=== PATIENT | male | born 1950 | race Caucasian/White ===

== ENCOUNTER 2017-12-26 12:25 | Inpatient (IN) | payer MEDICARE, OTHER ==
[2017-12-26 13:51] LABS: % BASOPHILS 0.7 % (0.0-2.0); % EOSINOPHILS 4.2 % (0.0-5.0); % LYMPHOCYTES 15.5 % (20.0-50.0); % MONOCYTES 10.3 % (2.0-10.0); % NEUTROPHILS 69.3 % (40.0-80.0); EOSINOPHILE ABSOLUTE 0.3 Th/cmm (0.1-0.4); HEMATOCRIT 41.7 % (41.0-60); LYMPHOCYTE ABSOLUTE 0.9 Th/cmm (1.5-3.0); MEAN CELL VOLUME 92.9 fl (80-99); MEAN CORPUSCULAR HEMOGLOBIN 31.2 pg (27.0-31.0); MEAN CORPUSCULAR HGB CONC 33.6 pg (28.0-36.0); MEAN PLATELET VOLUME 6.8 fl; MONOCYTE ABSOLUTE 0.6 Th/cmm (0.3-1.0); NEUTROPHILE ABSOLUTE 4.3 Th/cmm (1.8-8.0); PLATELET COUNT 196 Th/cmm (150-400); RED BLOOD COUNT 4.48 Mil/cmm (3.80-5.80); RED CELL DISTRIBUTION WIDTH 12.2 % (11.5-20.0); WHITE BLOOD COUNT 6.1 Th/cmm (4.8-10.8)
--- NOTE | 2017-12-26 13:57 | ED Physician Chart ---
ED Chief Complaint/HPI - Patient Information Date Seen:: 12/26/17 Time Seen:: 12:55 Chief Complaint:: Agitation History of Present Illness:: onset x 3 days of agitation, anxiety, hallucinations, and aggressive behavior; no report of H/As, S/T, neck pain, SIs, C/P, SOB, Abd. Pain, A/N/V/D/C, fever, chills, or urinary s/s; pt's last tetanus shot: < 5 years; UTD; no report of LOC , AMS, or ALOC Allergies:: Allergies Allergy/AdvReac Type Severity Reaction Status Date / Time No Known Allergies Allergy Verified 12/26/17 12:55 Vitals:: Vital Signs - 8 hr 12/26/17 12/26/17 12:54 12:55 Temp 98.2 F 98.7 F HR 53 53 RR 18 16 BP 149/62 149/62 O2 Sat % 99 99 Historian:: Patient, EMS Review:: Nurse's Note Reviewed, Old Chart Reviewed, EMS run form Reviewed ED Review of Systems - Review of Systems General/Constitutional: No fever, No chills, No weight loss, No weakness, No diaphoresis, No edema, No loss of appetite Skin: No skin lesions, No rash, No bruising Head: No headache, No light-headedness Eyes: No loss of vision, No pain, No diplopia ENT: No earache, No nasal drainage, No sore throat, No tinnitus Neck: No neck pain, No swelling, No thyromegaly, No stiffness, No mass noted Cardio Vascular: No chest pain, No palpitations, No PND, No orthopnea, No edema Pulmonary: No SOB, No cough, No sputum, No wheezing GI: No nausea, No vomiting, No diarrhea, No pain, No melena, No hematochezia, No constipation, No hematemesis G/U: No dysuria, No frequency, No hematuria, No nacturia Musculoskeletal: No bone or joint pain, No back pain, No muscle pain Endocrine: No polyuria, No polydipsia Psychiatric: Prior psych history, No depression, Anxiety, No suicidal ideation, No homicidal ideation, Auditory hallucination, No visual hallucination Hematopoietic: No bruising, No lymphadenopathy Allergic/Immuno: No urticaria, No angioedema Neurological: No syncope, No focal symptoms, No weakness, No paresthesia, No headache, No seizure, No dizziness, Confusion, No vertigo ED Past Medical History - Past Medical History Obtainable: Yes Past Medical History: HTN, CAD, CHF, Dyslipidemia, Dementia Family History: Heart disease, HTN Social History: Non Smoker, No Alcohol, No Drug Use, Single, Care Facility Surgical History: None Psychiatricy History: Schizophrenia, Bipolar, Dementia Medication: Reviewed Family Medical History - Family Member Mother History Unknown: Yes ED Physical Exam - Physical Examination General/Constitutional: Awake, Well-developed, well-nourished, Alert, No distress, GCS 15, Non-toxic appearing, Ambulatory Head: Atraumatic Eyes: Lids, conjuctiva normal, PERRL, EOMI Skin: Nl inspection, No rash, No skin lesions, No ecchymosis, Well hydrated, No lymphadenopathy ENMT: External ears, nose nl, TM canals nl, Nasal exam nl, Lips, teeth, gums nl , Oropharynx nl, Tonsils nl Neck: Nontender, Full ROM w/o pain, No JVD, No nuchal rigidity, No bruit, No mass, No stridor Respiratory: Nl effort/Exclusion, Clear to Auscultation, No Wheeze/Rhonchi/Rales Cardio Vascular: RRR, No murmur, gallop, rubs, NL S1 S2, Carotid/Femoral/Distal pulses equal bilaterally GI: No tenderness/rebounding/guarding, No organomegaly, No hernia, Normal BS's, Nondistended, No mass/bruits, No McBurney tenderness : No CVA tenderness Extremities: No tenderness or effusion, Full ROM, normal strength in all extremities, No edema, Normal digits & nails Neuro/Psych: Alert/oriented, DTR's symmetric, Normal sensory exam, Normal motor strength, Judgement/insight normal, Mood normal, Normal gait, No focal deficits Other Neuro/Psych comments:: Disoriented and Confused; + Psychomotor Agitation; no SIs; Mood/Affect: Labile Misc: Normal back, No paraspinal tenderness ED Labs/Radiology/EKG Results - Lab Results Results: Laboratory Tests 12/26/17 13:39 WBC 6.1 RBC 4.48 Hgb 14.0 Hct 41.7 MCV 92.9 MCH 31.2 H MCHC Differential 33.6 RDW 12.2 Plt Count 196 MPV 6.8 Neutrophils % 69.3 Lymphocytes % 15.5 L Monocytes % 10.3 H Eosinophils % 4.2 Basophils % 0.7 Comments:: Reviewed - EKG Interpretations EKG Time:: 13:44 Rate & Rhythm: 48; SB Comments:: non-specific st-t changes ED Septic Shock - . Is Septic Shock (SBP<90, OR Lactate>4 mmol\L) present?: No - <6hrs of presentation: Vital Signs: Vital Signs - 8 hr 12/26/17 12/26/17 12:54 12:55 Temp 98.2 F 98.7 F HR 53 53 RR 18 16 BP 149/62 149/62 O2 Sat % 99 99 ED Reassessment (Disposition) - Reassessment Reassessment Condition:: Improved - Diagnosis Diagnosis:: Psychosis; Hallucinations; Medical Clearance; Alzheimer's Disease; Dementia; Schizophrenia - Aftercare/Follow up Instructions Aftercare/Follow-Up Instructions:: Counseled pt regarding lab results/diagnosis & need follow up, Counseled pt & family regarding lab results/diagnosis & need follow up - Patient Disposition Discharge/Transfer:: Acute Care w/in this hosp Admitted to:: [facility] Condition at Disposition:: Stable, Improved
[2017-12-26 14:28] LABS: URINE BILIRUBIN NEGATIVE (NEGATIVE); URINE BLOOD NEGATIVE (NEGATIVE); URINE GLUCOSE (UA) NEGATIVE (NEGATIVE); URINE KETONE NEGATIVE (NEGATIVE); URINE LEUKOCYTE ESTERASE NEGATIVE (NEGATIVE); URINE NITRATE NEGATIVE (NEGATIVE); URINE PROTEIN NEGATIVE (NEGATIVE); URINE SOURCE CLEAN C; URINE UROBILINOGEN 0.2 E.U./dL (0.2 - 1.0)
[2017-12-26 14:28] LABS: ACETAMINOPHEN < 10.0 ug/mL (10.0-30.0); ALB/GLOB RATIO 1.1 (1.0-1.8); ALBUMIN 3.6 gm/dL (4.2-5.5); ALKALINE PHOSPHATASE 78 U/L (34-104); ANION GAP 10.8 (7.0-16.0); BILIRUBIN,TOTAL 0.6 mg/dL (0.3-1.0); BUN - UREA NITROGEN 18 mg/dL (7-25); CALCIUM SERUM 9.1 mg/dL (8.6-10.3); CARBON DIOXIDE 30.1 mEq/L (21.0-31.0); CHLORIDE 99 mEq/L (98-107); CHOLESTEROL 162 mg/dL (<200); CREATININE - SERUM 0.9 mg/dL (0.7-1.3); GFR AFRICAN-AMERICAN > 60.0 ml/min (>90); GFR NON AFRICAN-AMERICAN > 60.0 ml/min; GLUCOSE 104 mg/dL (70-105); HDL -HIGH DENSITY LIPOPROTEIN 43 mg/dL (23-92); POTASSIUM SERUM 4.9 mEq/L (3.5-5.1); SGOT 18 U/L (13-39); SGPT/ALT 23 U/L (7-52); SODIUM SERUM 135 mEq/L (136-145); TOTAL PROTEIN,SERUM 6.9 gm/dL (6.0-8.3); TRIGLYCERIDES 204 mg/dL (<150)
[2017-12-26 14:29] LABS: URINE CLARITY CLEAR (CLEAR); URINE COLOR YELLOW; URINE MICROSCOPIC INDICATED? YES
[2017-12-26 14:30] LABS: SALICYLATES (ASPIRIN) < 25.0 mg/L (30.0-100.0)
[2017-12-26 14:34] LABS: URINE BACTERIA FEW /hpf (NONE SEEN); URINE EPITHELIAL CELLS FEW /lpf (FEW); URINE RBC NONE SEEN /hpf (0-5); URINE WBC 0-2 /hpf (0-5)
[2017-12-26] MEDS ORDERED: Acetaminophen 500 MG TAB ONE (14:55)
[2017-12-26] MEDS ORDERED: Acetaminophen 500 MG TAB PO ONE (14:59)
[2017-12-26 15:01] LABS: AMPHETAMINE URINE NEGATIVE (NEGATIVE); BARBITURATES URINE NEGATIVE (NEGATIVE); BENZODIAZEPINES QUAL URINE NEGATIVE (NEGATIVE); CANNABINOID THC NEGATIVE (NEGATIVE); COCAINE METABOLITE QUAL URINE NEGATIVE (NEGATIVE); METHADONE URINE NEGATIVE (NEGATIVE); METHAMPHETAMINES QUAL URINE NEGATIVE (NEGATIVE); OPIATES (MORPHINE) QUAL. URINE POSITIVE (NEGATIVE); PHENCYCLIDINE (PCP) URINE NEGATIVE (NEGATIVE); TRICYCLICS (TCA) QUAL. URINE NEGATIVE (NEGATIVE)
[2017-12-26] MEDS ORDERED: Magnesium Hydroxide (MOM) 30 mL UDC PO PRN (16:06)
[2017-12-26 16:27] LABS: CHOLESTEROL 168 mg/dL (<200); HDL -HIGH DENSITY LIPOPROTEIN 44 mg/dL (23-92); TRIGLYCERIDES 206 mg/dL (<150)
[2017-12-26 20:04] VITALS: BP 130/70
[2017-12-26] MEDS ORDERED: Fleet Enema 135 mL RC PRN (20:25)
[2017-12-26] MEDS ORDERED: LIDOCAINE TP SCH (21:00)
[2017-12-26] MEDS: Maalox 30 mL Cup PO PRN (21:35)
[2017-12-26] MEDS: Hydrocodone/APAP 5mg/325mg Tab PO PRN (21:36)
[2017-12-26] MEDS: Potassium Chloride 20 mEq ER Tab PO SCH (21:37)
[2017-12-27] MEDS: Acetaminophen 500 MG TAB PO PRN (02:55)
[2017-12-27] MEDS: Multivitamin Tab PO SCH (08:15)
[2017-12-27] MEDS: Potassium Chloride 20 mEq ER Tab PO SCH ×4 (08:15→21:04)
[2017-12-27] MEDS: Fish Oil 1,000 MG SGL PO SCH ×2 (08:15→16:30)
--- NOTE | 2017-12-27 08:58 | History and Physical ---
History of Present Illness - HPI Chief Complaint: Aggressive behavior HPI: Patient was send by SNF for evaluation due to aggressive behavior. 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: Dementia GI: Report: No Pertinent Hx Psych: Report: No Pertinent Hx Musculoskeletal: Report: No Pertinent Hx Rheumatologic: Report: No pertinent Hx Infectious Disease: Report: No Pertinent Hx Renal/: Report: No Pertinent Hx Endocrine: Report: No Pertinent Hx Dermatology: Report: No Pertinent Hx - Past Surgical History Past Surgical History: No pertinent Hx Family Medical History - Family Member Mother History Unknown: Yes Social History Smoke: No Alcohol: None Drugs: None Lives: Long Term Domestic Violence: Negative - Medications Home Medications: Home Medication Medication Instructions Recorded Type Acetaminophen [Acetaminophen ER] 650 mg PO Q4H PRN 12/26/17 History Acetaminophen [Pain Relief] 500 mg PO Q4H PRN 12/26/17 History Acetaminophen [Tylenol Extra 1,000 mg PO Q4HR PRN 12/26/17 History Strength] Aspirin [Adult Aspirin] 81 mg PO DAILY 12/26/17 History Benztropine [Cogentin*] 0.5 mg PO HS 12/26/17 History Bisacodyl [Dulcolax 10 Mg Supp] 10 mg RC DAILY PRN 12/26/17 History Calcium Carbonate [Tums] 500 mg PO TID 12/26/17 History Clonazepam [Klonopin] 0.5 mg PO BID PRN 12/26/17 History Divalproex [Bhavik NOVA] 125 mg PO DAILY 12/26/[address] [Bhavik NOVA] 250 mg PO HS 12/26/17 History Docusate Sodium [Stool Softener] 250 mg PO BID 12/26/17 History Donepezil HCl [Aricept] 10 mg PO DAILY 12/26/17 History Fish Oil [[place] 3] 1,000 mg PO BID 12/26/17 History Fleet Enema 1 bot RC DAILY PRN 12/26/17 History Furosemide [Lasix] 40 mg PO BID 12/26/17 History Hydrocodone/Acetaminophen [[place] 1 tab PO QID PRN 12/26/17 History 325 mg-5 mg*] Lidocaine 30 gm TP TID 12/26/17 History Mag Hydrox/Al Hydrox/Simeth 30 ml PO Q6H PRN 12/26/17 History [Alum-Mag Hydroxide-Simeth Liq] Magnesium Hydroxide [Milk of 30 ml PO DAILY PRN 12/26/17 History Magnesia] Melatonin/Pyridoxine HCl (B6) 1 each PO DAILY 12/26/17 History [Melatonin 3 mg Tablet] Metoprolol Tartrate 200 mg PO BID 12/26/17 History Multivitamin-Min/Iron/FA/Vit K 1 tab PO DAILY 12/26/17 History [Multi-Day Plus Minerals Tablet] Potassium Chloride 20 meq PO QID 12/26/17 History Sennosides A and B [Senna] 2 tab PO BID 12/26/17 History Simvastatin [Zocor] 20 mg PO DAILY 12/26/17 History Sodium Chloride 2 gm PO QID 12/26/17 History Tramadol HCl [Ultram] 50 mg PO Q6H PRN 12/26/17 History risperiDONE [RisperDAL] 0.5 mg PO HS 12/26/17 History - Allergies Allergies/Adverse Reactions: Allergies Allergy/AdvReac Type Severity Reaction Status Date / Time No Known Allergies Allergy Verified 12/26/17 12:55 Review of Systems - Review of Systems Constitutional: Report: No Significant Eyes: Report: No Significant ENT: Report: No Significant Respiratory: Report: No Significant Cardiovascular: Report: No Significant Gastrointestinal: Report: No Significant Genitourinary: Report: No Significant Musculoskeletal: Report: No Significant Skin: Report: No Significant Neurological: Report: No Significant Physical Exam - Physical Exam HEENT: Report: Ears Nose Throat within normal limits, Pale Conjunctiva Cardiovascular Systems: Report: Regular, Rate and Rhythm Respiratory: Report: Breath Sounds are within normal limits Abdomen: Report: Non-tender to palpation Back: Report: Inspection of back is within normal limits. Skin: Report: Color of skin is within normal limits Neuro/Psych: Report: Disoriented to name time or place - Lab Results All Lab Results last 24 hours: Laboratory Results - last 24 hr 12/26/17 12/26/17 12/26/17 13:39 13:39 13:39 WBC 6.1 RBC 4.48 Hgb 14.0 Hct 41.7 MCV 92.9 MCH 31.2 H MCHC Differential 33.6 RDW 12.2 Plt Count 196 MPV 6.8 Neutrophils % 69.3 Lymphocytes % 15.5 L Monocytes % 10.3 H Eosinophils % 4.2 Basophils % 0.7 Sodium 135 L Potassium 4.9 Chloride 99 Carbon Dioxide 30.1 Anion Gap 10.8 BUN 18 Creatinine 0.9 Est GFR ( Amer) > 60.0 Est GFR (Non-Af Amer) > 60.0 BUN/Creatinine Ratio 20.0 Glucose 104 Calcium 9.1 Total Bilirubin 0.6 AST 18 ALT 23 Alkaline Phosphatase 78 Troponin I Total Protein 6.9 Albumin 3.6 L Globulin 3.3 Albumin/Globulin Ratio 1.1 Triglycerides 204 H Cholesterol 162 LDL Cholesterol Direct 80 HDL Cholesterol 43 TSH 1.90 Urine Source Urine Color Urine Clarity Urine pH Ur Specific [place] Urine Protein Urine Glucose (UA) Urine Ketones Urine Blood Urine Nitrate Urine Bilirubin Urine Urobilinogen Ur Leukocyte Esterase Urine RBC Urine WBC Ur Epithelial Cells Urine Bacteria Salicylates < 25.0 L Urine Opiates Screen Urine Methadone Screen Acetaminophen < 10.0 L Ur Barbiturates Screen Ur Tricyclics Screen Ur Phencyclidine Scrn Amphetamines Screen U Methamphetamines Scrn U Benzodiazepines Scrn U Cocaine Metab Screen U Cannabinoids Screen Ethyl Alcohol < 10 12/26/17 12/26/17 12/26/17 13:39 13:39 13:39 WBC RBC Hgb Hct MCV MCH MCHC Differential RDW Plt Count MPV Neutrophils % Lymphocytes % Monocytes % Eosinophils % Basophils % Sodium Potassium Chloride Carbon Dioxide Anion Gap BUN Creatinine Est GFR ( Amer) Est GFR (Non-Af Amer) BUN/Creatinine Ratio Glucose Calcium Total Bilirubin AST ALT Alkaline Phosphatase Troponin I 0.01 Total Protein Albumin Globulin Albumin/Globulin Ratio Triglycerides 206 H Cholesterol 168 LDL Cholesterol Direct 81 HDL Cholesterol 44 TSH Urine Source Urine Color Urine Clarity Urine pH Ur Specific [place] Urine Protein Urine Glucose (UA) Urine Ketones Urine Blood Urine Nitrate Urine Bilirubin Urine Urobilinogen Ur Leukocyte Esterase Urine RBC Urine WBC Ur Epithelial Cells Urine Bacteria Salicylates Urine Opiates Screen POSITIVE H Urine Methadone Screen NEGATIVE Acetaminophen Ur Barbiturates Screen NEGATIVE Ur Tricyclics Screen NEGATIVE Ur Phencyclidine Scrn NEGATIVE Amphetamines Screen NEGATIVE U Methamphetamines Scrn NEGATIVE U Benzodiazepines Scrn NEGATIVE U Cocaine Metab Screen NEGATIVE U Cannabinoids Screen NEGATIVE Ethyl Alcohol 12/26/17 14:09 WBC RBC Hgb Hct MCV MCH MCHC Differential RDW Plt Count MPV Neutrophils % Lymphocytes % Monocytes % Eosinophils % Basophils % Sodium Potassium Chloride Carbon Dioxide Anion Gap BUN Creatinine Est GFR ( Amer) Est GFR (Non-Af Amer) BUN/Creatinine Ratio Glucose Calcium Total Bilirubin AST ALT Alkaline Phosphatase Troponin I Total Protein Albumin Globulin Albumin/Globulin Ratio Triglycerides Cholesterol LDL Cholesterol Direct HDL Cholesterol TSH Urine Source CLEAN C Urine Color YELLOW Urine Clarity CLEAR Urine pH 6.0 Ur Specific [place] 1.010 Urine Protein NEGATIVE Urine Glucose (UA) NEGATIVE Urine Ketones NEGATIVE Urine Blood NEGATIVE Urine Nitrate NEGATIVE Urine Bilirubin NEGATIVE Urine Urobilinogen 0.2 Ur Leukocyte Esterase NEGATIVE Urine RBC NONE SEEN Urine WBC 0-2 Ur Epithelial Cells FEW Urine Bacteria FEW Salicylates Urine Opiates Screen Urine Methadone Screen Acetaminophen Ur Barbiturates Screen Ur Tricyclics Screen Ur Phencyclidine Scrn Amphetamines Screen U Methamphetamines Scrn U Benzodiazepines Scrn U Cocaine Metab Screen U Cannabinoids Screen Ethyl Alcohol - Assessment Assessment: Patient is awake , alert, calm, in no acute distress. Dx: Increased in agitation, HTN, CAD, CHF, Dyslipemia, Dementia, Obesity. - Plan Plan: Patient is follow by Psychiatry, will continue with SNF meds. Will continue to monitor.
[2017-12-27] MEDS ORDERED: Non-Formulary Item 1 EA (Melatonin/Pyridoxine Hcl (B6) [Melatonin 3 Mg Tablet] 1 EACH) PO SCH (09:00)
[2017-12-27] MEDS ORDERED: Non-Formulary Item 1 EA (Multivitamin-Min/Iron/Fa/Vit K [Multi-Day Plus Minerals Tablet] 1 PO SCH (09:00)
[2017-12-27] MEDS: Hydrocodone/APAP 5mg/325mg Tab PO PRN ×2 (10:12→21:05)
[2017-12-27] MEDS: Maalox 30 mL Cup PO PRN (21:05)
[2017-12-28] MEDS: Multivitamin Tab PO SCH (08:42)
[2017-12-28] MEDS: Hydrocodone/APAP 5mg/325mg Tab PO PRN ×2 (08:42→16:29)
[2017-12-28] MEDS: Fish Oil 1,000 MG SGL PO SCH ×2 (08:42→16:26)
[2017-12-28] MEDS: Potassium Chloride 20 mEq ER Tab PO SCH ×4 (08:44→20:53)
--- NOTE | 2017-12-28 10:33 | General Progress Note ---
Subjective - Review of Systems Service Date: 12/28/17 Subjective: Patient is confused Objective - Results Result Diagrams: 12/26/17 13:39 12/26/17 13:39 Recent Labs: Laboratory Last Values WBC 6.1 Th/cmm (4.8-10.8) 12/26/17 13:39 RBC 4.48 Mil/cmm (3.80-5.80) 12/26/17 13:39 Hgb 14.0 gm/dL (12-16) 12/26/17 13:39 Hct 41.7 % (41.0-60) 12/26/17 13:39 MCV 92.9 fl (80-99) 12/26/17 13:39 MCH 31.2 pg (27.0-31.0) H 12/26/17 13:39 MCHC Differential 33.6 pg (28.0-36.0) 12/26/17 13:39 RDW 12.2 % (11.5-20.0) 12/26/17 13:39 Plt Count 196 Th/cmm (150-400) 12/26/17 13:39 MPV 6.8 fl 12/26/17 13:39 Neutrophils % 69.3 % (40.0-80.0) 12/26/17 13:39 Lymphocytes % 15.5 % (20.0-50.0) L 12/26/17 13:39 Monocytes % 10.3 % (2.0-10.0) H 12/26/17 13:39 Eosinophils % 4.2 % (0.0-5.0) 12/26/17 13:39 Basophils % 0.7 % (0.0-2.0) 12/26/17 13:39 Sodium 135 mEq/L (136-145) L 12/26/17 13:39 Potassium 4.9 mEq/L (3.5-5.1) 12/26/17 13:39 Chloride 99 mEq/L (98-107) 12/26/17 13:39 Carbon Dioxide 30.1 mEq/L (21.0-31.0) 12/26/17 13:39 Anion Gap 10.8 (7.0-16.0) 12/26/17 13:39 BUN 18 mg/dL (7-25) 12/26/17 13:39 Creatinine 0.9 mg/dL (0.7-1.3) 12/26/17 13:39 Est GFR ( Amer) > 60.0 ml/min (>90) 12/26/17 13:39 Est GFR (Non-Af Amer) > 60.0 ml/min 12/26/17 13:39 BUN/Creatinine Ratio 20.0 12/26/17 13:39 Glucose 104 mg/dL (70-105) 12/26/17 13:39 Calcium 9.1 mg/dL (8.6-10.3) 12/26/17 13:39 Total Bilirubin 0.6 mg/dL (0.3-1.0) 12/26/17 13:39 AST 18 U/L (13-39) 12/26/17 13:39 ALT 23 U/L (7-52) 12/26/17 13:39 Alkaline Phosphatase 78 U/L (34-104) 12/26/17 13:39 Troponin I 0.01 ng/mL (0.01-0.05) 12/26/17 13:39 Total Protein 6.9 gm/dL (6.0-8.3) 12/26/17 13:39 Albumin 3.6 gm/dL (4.2-5.5) L 12/26/17 13:39 Globulin 3.3 gm/dL 12/26/17 13:39 Albumin/Globulin Ratio 1.1 (1.0-1.8) 12/26/17 13:39 Triglycerides 206 mg/dL (<150) H 12/26/17 13:39 Cholesterol 168 mg/dL (<200) 12/26/17 13:39 LDL Cholesterol Direct 81 mg/dL (75-193) 12/26/17 13:39 HDL Cholesterol 44 mg/dL (23-92) 12/26/17 13:39 TSH 1.90 uIU/ml (0.34-5.60) 12/26/17 13:39 Urine Source CLEAN C 12/26/17 14:09 Urine Color YELLOW 12/26/17 14:09 Urine Clarity CLEAR (CLEAR) 12/26/17 14:09 Urine pH 6.0 (4.6 - 8.0) 12/26/17 14:09 Ur Specific [place] 1.010 (1.005-1.030) 12/26/17 14:09 Urine Protein NEGATIVE mg/dL (NEGATIVE) 12/26/17 14:09 Urine Glucose (UA) NEGATIVE mg/dL (NEGATIVE) 12/26/17 14:09 Urine Ketones NEGATIVE mg/dL (NEGATIVE) 12/26/17 14:09 Urine Blood NEGATIVE (NEGATIVE) 12/26/17 14:09 Urine Nitrate NEGATIVE (NEGATIVE) 12/26/17 14:09 Urine Bilirubin NEGATIVE (NEGATIVE) 12/26/17 14:09 Urine Urobilinogen 0.2 E.U./dL (0.2 - 1.0) 12/26/17 14:09 Ur Leukocyte Esterase NEGATIVE (NEGATIVE) 12/26/17 14:09 Urine RBC NONE SEEN /hpf (0-5) 12/26/17 14:09 Urine WBC 0-2 /hpf (0-5) 12/26/17 14:09 Ur Epithelial Cells FEW /lpf (FEW) 12/26/17 14:09 Urine Bacteria FEW /hpf (NONE SEEN) 12/26/17 14:09 Salicylates < 25.0 mg/L (30.0-100.0) L 12/26/17 13:39 Urine Opiates Screen POSITIVE (NEGATIVE) H 12/26/17 13:39 Urine Methadone Screen NEGATIVE (NEGATIVE) 12/26/17 13:39 Acetaminophen < 10.0 ug/mL (10.0-30.0) L 12/26/17 13:39 Ur Barbiturates Screen NEGATIVE (NEGATIVE) 12/26/17 13:39 Ur Tricyclics Screen NEGATIVE (NEGATIVE) 12/26/17 13:39 Ur Phencyclidine Scrn NEGATIVE (NEGATIVE) 12/26/17 13:39 Amphetamines Screen NEGATIVE (NEGATIVE) 12/26/17 13:39 U Methamphetamines Scrn NEGATIVE (NEGATIVE) 12/26/17 13:39 U Benzodiazepines Scrn NEGATIVE (NEGATIVE) 12/26/17 13:39 U Cocaine Metab Screen NEGATIVE (NEGATIVE) 12/26/17 13:39 U Cannabinoids Screen NEGATIVE (NEGATIVE) 12/26/17 13:39 Ethyl Alcohol < 10 mg/dL (0-10) 12/26/17 13:39 RPR NONREACTIVE (NONREACTIVE) 12/26/17 13:39 - Physical Exam Vitals and I&O: Vital Signs Temp 97.6 F 12/28/17 06:49 Pulse 77 12/28/17 08:49 Resp 20 12/28/17 06:49 BP 149/83 12/28/17 08:49 Pulse Ox 97 12/28/17 06:49 Intake & Output 12/27/17 12/28/17 12/28/17 18:59 06:59 18:59 Intake Total 900 120 Balance 900 120 Intake: Oral 900 120 Other: # Voids 3 3 # Bowel Movements 1 Active Medications: Current Medications Acetaminophen (Tylenol) 650 mg PO Q4HR PRN PRN Reason: Mild Pain / Temp above 100 Stop: 02/24/18 16:05 Last Admin: 12/26/17 17:51 Dose: 650 mg Acetaminophen (Tylenol Extra Strength) 1,000 mg PO Q4H PRN PRN Reason: Pain (Severe) Stop: 02/24/18 20:24 Last Admin: 12/27/17 02:55 Dose: 1,000 mg Acetaminophen/Hydrocodone Bitart ([place] 5mg/325mg) 1 tab PO QID PRN PRN Reason: Pain (Moderate) Stop: 02/24/18 20:24 Last Admin: 12/28/17 08:42 Dose: 1 tab Al Hydrox/Mg Hydrox/Simethicone (Maalox) 30 ml PO Q4HR PRN PRN Reason: GI DISTRESS Stop: 02/24/18 16:05 Last Admin: 12/27/17 21:05 Dose: 30 ml Aspirin (Ecotrin) 81 mg PO DAILY [facility] Stop: 02/25/18 08:59 Last Admin: 12/28/17 08:42 Dose: 81 mg Benztropine Mesylate (Cogentin) 0.5 mg PO HS [facility] Stop: 02/24/18 20:59 Last Admin: 12/27/17 21:04 Dose: 0.5 mg Bisacodyl (Dulcolax 10 Mg Supp) 10 mg RC DAILY PRN PRN Reason: Constipation Stop: 02/24/18 20:24 Calcium Carbonate (Tums) 500 mg PO TID [facility] Stop: 02/24/18 20:59 Last Admin: 12/28/17 08:42 Dose: 500 mg Divalproex Sodium (Depakote Dr) 125 mg PO DAILY [facility]; Protocol Stop: 02/25/18 08:59 Last Admin: 12/28/17 08:43 Dose: 125 mg Divalproex Sodium (Depakote Dr) 250 mg PO HS [facility]; Protocol Stop: 02/24/18 20:59 Last Admin: 12/27/17 21:04 Dose: 250 mg Docusate Sodium (Colace) 250 mg PO BID [facility] Stop: 02/25/18 08:59 Last Admin: 12/28/17 08:42 Dose: 250 mg Donepezil HCl (Aricept) 10 mg PO DAILY [facility] Stop: 02/25/18 08:59 Last Admin: 12/27/17 08:15 Dose: 10 mg Fish Oil ([place] 3) 1,000 mg PO BID [facility] Stop: 02/25/18 08:59 Last Admin: 12/28/17 08:42 Dose: 1,000 mg Furosemide (Lasix) 40 mg PO BID [facility] Stop: 02/25/18 08:59 Last Admin: 12/28/17 08:45 Dose: 40 mg Lorazepam (Ativan) 0.5 mg PO Q4HR PRN; Protocol PRN Reason: Anxiety Stop: 01/26/18 06:28 Magnesium Hydroxide (Milk Of Magnesia) 30 ml PO HS PRN PRN Reason: Constipation Metoprolol Tartrate (Lopressor) 200 mg PO BID [facility] Stop: 02/25/18 08:59 Last Admin: 12/28/17 08:49 Dose: 200 mg Miscellaneous (Lidocaine [Lidocaine]) 30 gm TP TID [facility] Stop: 02/24/18 20:59 Multivitamins/Vitamin C (Theragran) 1 tab PO DAILY [facility] Stop: 02/25/18 08:59 Last Admin: 12/28/17 08:42 Dose: 1 tab Potassium Chloride (Klor-Con) 20 meq PO QID [facility] Stop: 02/24/18 20:59 Last Admin: 12/28/17 08:44 Dose: 20 meq Pyridoxine HCl (Vitamin B6) 50 mg PO DAILY [facility] Stop: 02/25/18 08:59 Last Admin: 12/28/17 08:42 Dose: 50 mg Risperidone (Risperdal) 1 mg PO HS [facility]; Protocol Stop: 02/25/18 20:59 Last Admin: 12/27/17 21:05 Dose: 1 mg Senna (Senna) 17.2 mg PO BID [facility] Stop: 02/25/18 08:59 Last Admin: 12/28/17 08:43 Dose: 17.2 mg Simvastatin (Zocor) 20 mg PO HS [facility]; Protocol Stop: 02/25/18 20:59 Last Admin: 12/27/17 21:04 Dose: 20 mg Sodium Chloride (Nacl Tab) 2 gm PO QID [facility] Stop: 02/24/18 20:59 Last Admin: 12/27/17 21:04 Dose: 2 gm Sodium Phosphate (Fleet Enema) 135 ml RC DAILY PRN PRN Reason: Constipation Stop: 02/24/18 20:24 Tramadol HCl (Ultram) 50 mg PO Q6H PRN PRN Reason: Pain (Mild) Stop: 02/24/18 20:24 Last Admin: 12/28/17 05:54 Dose: 50 mg Zolpidem Tartrate (Ambien) 5 mg PO HS PRN PRN Reason: Insomnia Stop: 02/24/18 16:05 Last Admin: 12/26/17 21:37 Dose: 5 mg General: Alert, No acute distress, Other (Confused) HEENT: Atraumatic, EOMI Cardiovascular: Regular rate Lungs: Clear to auscultation Abdomen: Bowel sounds Extremities: Other (No edema) Neurological: Normal gait Skin: Other (Warm and dry) Psych/Mental Status: Other (Confused) Assessment/Plan - Assessment Assessment: Patient is awake , alert, calm, in no acute distress. Dx: Increased in agitation, HTN, CAD, CHF, Dyslipemia, Dementia, Obesity. - Plan Plan: Patient is follow by Psychiatry, will continue with SNF meds. Will continue to monitor.
--- NOTE | 2017-12-28 16:31 | Psychiatric Evaluation ---
DATE OF SERVICE: JUSTIFICATION FOR HOSPITALIZATION: Agitation for 3 days, aggressive behaviors. CHIEF COMPLAINT: "I was asked to come here." HISTORY OF PRESENT ILLNESS: A 67-year-old male, noting that he was told to come to the hospital. He is talking about electrocution feels and electrocution technology at his place of residence. He does not know why he is in the hospital. He is bizarre, tangential, asking nonsensical questions, also ruminative on wanting to get an x-ray for some odd reason. The patient is somewhat aggressive, follows me around, keeps asking me to come talk to him. Noted to be disoriented, confused. Denies overt sadness or depression. PAST PSYCHIATRIC HISTORY: He notes he has had psychiatric admissions in the past. No suicide history. MEDICATIONS: Noted. SOCIAL HISTORY: He states he was born in [place], for 5 years. He states he has stepdaughter. Unclear drugs, alcohol or tobacco. MENTAL STATUS EXAMINATION: Overweight male, stated age, disoriented. No overt SI or HI. The patient talking about electric feels, delusional, psychotic-appearing, poor insight, poor judgment. Psychomotorically accelerated. PROVISIONAL DIAGNOSES: Likely schizophrenia; psychosis, unspecified; concerns for dementia; and anxiety, unspecified. MEDICAL: Please see full H and P. ESTIMATED LENGTH OF STAY: 7-10 days. ASSESSMENT: The patient is psychotic, agitated, poor impulse control. PLAN: We will continue to monitor, titrate and adjust medications. The patient will likely benefit from a dose titration of medications such as Risperdal. [facility]# [id number]
[2017-12-28] MEDS: Maalox 30 mL Cup PO PRN (17:53)
[2017-12-29] MEDS: Hydrocodone/APAP 5mg/325mg Tab PO PRN ×3 (00:58→21:09)
--- NOTE | 2017-12-29 01:15 | Progress Notes ---
DATE: 12/28/2017 SUBJECTIVE: The patient in the hospital, had been psychotic and talking about electricity and electrocution at his place of residence. The patient yelling at times, fairly well oriented, but labile, highly unpredictable, sometimes not making sense on exam, some periods of agitation, unruly behaviors. ASSESSMENT: The patient has been aggressive at place of residence and psychotic. Recent dose increase of Risperdal, anxious, concerns for ongoing combative behaviors. PLAN: We will continue to monitor, titrate and adjust medications. Given recent dose increase of Risperdal, we will continue at current dose. JOB# [id number]
[2017-12-29] MEDS: Maalox 30 mL Cup PO PRN (05:51)
[2017-12-29] MEDS: Potassium Chloride 20 mEq ER Tab PO SCH ×4 (08:28→21:07)
[2017-12-29] MEDS: Multivitamin Tab PO SCH (08:32)
[2017-12-29] MEDS: Fish Oil 1,000 MG SGL PO SCH ×2 (08:33→17:20)
--- NOTE | 2017-12-29 09:05 | General Progress Note ---
Subjective - Review of Systems Service Date: 12/29/17 Subjective: Patient is confused Objective - Results Result Diagrams: 12/26/17 13:39 12/26/17 13:39 Recent Labs: Laboratory Last Values WBC 6.1 Th/cmm (4.8-10.8) 12/26/17 13:39 RBC 4.48 Mil/cmm (3.80-5.80) 12/26/17 13:39 Hgb 14.0 gm/dL (12-16) 12/26/17 13:39 Hct 41.7 % (41.0-60) 12/26/17 13:39 MCV 92.9 fl (80-99) 12/26/17 13:39 MCH 31.2 pg (27.0-31.0) H 12/26/17 13:39 MCHC Differential 33.6 pg (28.0-36.0) 12/26/17 13:39 RDW 12.2 % (11.5-20.0) 12/26/17 13:39 Plt Count 196 Th/cmm (150-400) 12/26/17 13:39 MPV 6.8 fl 12/26/17 13:39 Neutrophils % 69.3 % (40.0-80.0) 12/26/17 13:39 Lymphocytes % 15.5 % (20.0-50.0) L 12/26/17 13:39 Monocytes % 10.3 % (2.0-10.0) H 12/26/17 13:39 Eosinophils % 4.2 % (0.0-5.0) 12/26/17 13:39 Basophils % 0.7 % (0.0-2.0) 12/26/17 13:39 Sodium 135 mEq/L (136-145) L 12/26/17 13:39 Potassium 4.9 mEq/L (3.5-5.1) 12/26/17 13:39 Chloride 99 mEq/L (98-107) 12/26/17 13:39 Carbon Dioxide 30.1 mEq/L (21.0-31.0) 12/26/17 13:39 Anion Gap 10.8 (7.0-16.0) 12/26/17 13:39 BUN 18 mg/dL (7-25) 12/26/17 13:39 Creatinine 0.9 mg/dL (0.7-1.3) 12/26/17 13:39 Est GFR ( Amer) > 60.0 ml/min (>90) 12/26/17 13:39 Est GFR (Non-Af Amer) > 60.0 ml/min 12/26/17 13:39 BUN/Creatinine Ratio 20.0 12/26/17 13:39 Glucose 104 mg/dL (70-105) 12/26/17 13:39 Calcium 9.1 mg/dL (8.6-10.3) 12/26/17 13:39 Total Bilirubin 0.6 mg/dL (0.3-1.0) 12/26/17 13:39 AST 18 U/L (13-39) 12/26/17 13:39 ALT 23 U/L (7-52) 12/26/17 13:39 Alkaline Phosphatase 78 U/L (34-104) 12/26/17 13:39 Troponin I 0.01 ng/mL (0.01-0.05) 12/26/17 13:39 Total Protein 6.9 gm/dL (6.0-8.3) 12/26/17 13:39 Albumin 3.6 gm/dL (4.2-5.5) L 12/26/17 13:39 Globulin 3.3 gm/dL 12/26/17 13:39 Albumin/Globulin Ratio 1.1 (1.0-1.8) 12/26/17 13:39 Triglycerides 206 mg/dL (<150) H 12/26/17 13:39 Cholesterol 168 mg/dL (<200) 12/26/17 13:39 LDL Cholesterol Direct 81 mg/dL (75-193) 12/26/17 13:39 HDL Cholesterol 44 mg/dL (23-92) 12/26/17 13:39 TSH 1.90 uIU/ml (0.34-5.60) 12/26/17 13:39 Urine Source CLEAN C 12/26/17 14:09 Urine Color YELLOW 12/26/17 14:09 Urine Clarity CLEAR (CLEAR) 12/26/17 14:09 Urine pH 6.0 (4.6 - 8.0) 12/26/17 14:09 Ur Specific [place] 1.010 (1.005-1.030) 12/26/17 14:09 Urine Protein NEGATIVE mg/dL (NEGATIVE) 12/26/17 14:09 Urine Glucose (UA) NEGATIVE mg/dL (NEGATIVE) 12/26/17 14:09 Urine Ketones NEGATIVE mg/dL (NEGATIVE) 12/26/17 14:09 Urine Blood NEGATIVE (NEGATIVE) 12/26/17 14:09 Urine Nitrate NEGATIVE (NEGATIVE) 12/26/17 14:09 Urine Bilirubin NEGATIVE (NEGATIVE) 12/26/17 14:09 Urine Urobilinogen 0.2 E.U./dL (0.2 - 1.0) 12/26/17 14:09 Ur Leukocyte Esterase NEGATIVE (NEGATIVE) 12/26/17 14:09 Urine RBC NONE SEEN /hpf (0-5) 12/26/17 14:09 Urine WBC 0-2 /hpf (0-5) 12/26/17 14:09 Ur Epithelial Cells FEW /lpf (FEW) 12/26/17 14:09 Urine Bacteria FEW /hpf (NONE SEEN) 12/26/17 14:09 Salicylates < 25.0 mg/L (30.0-100.0) L 12/26/17 13:39 Urine Opiates Screen POSITIVE (NEGATIVE) H 12/26/17 13:39 Urine Methadone Screen NEGATIVE (NEGATIVE) 12/26/17 13:39 Acetaminophen < 10.0 ug/mL (10.0-30.0) L 12/26/17 13:39 Ur Barbiturates Screen NEGATIVE (NEGATIVE) 12/26/17 13:39 Ur Tricyclics Screen NEGATIVE (NEGATIVE) 12/26/17 13:39 Ur Phencyclidine Scrn NEGATIVE (NEGATIVE) 12/26/17 13:39 Amphetamines Screen NEGATIVE (NEGATIVE) 12/26/17 13:39 U Methamphetamines Scrn NEGATIVE (NEGATIVE) 12/26/17 13:39 U Benzodiazepines Scrn NEGATIVE (NEGATIVE) 12/26/17 13:39 U Cocaine Metab Screen NEGATIVE (NEGATIVE) 12/26/17 13:39 U Cannabinoids Screen NEGATIVE (NEGATIVE) 12/26/17 13:39 Ethyl Alcohol < 10 mg/dL (0-10) 12/26/17 13:39 RPR NONREACTIVE (NONREACTIVE) 12/26/17 13:39 - Physical Exam Vitals and I&O: Vital Signs Temp 97.8 F 12/29/17 07:10 Pulse 68 12/29/17 08:30 Resp 19 12/29/17 07:10 BP 153/79 12/29/17 08:30 Pulse Ox 97 12/29/17 07:10 Intake & Output 12/28/17 12/29/17 12/29/17 18:59 06:59 18:59 Intake Total 1100 480 240 Balance 1100 480 240 Intake: Oral 1100 480 240 Other: # Voids 4 2 1 # Bowel Movements 1 Active Medications: Current Medications Acetaminophen (Tylenol) 650 mg PO Q4HR PRN PRN Reason: Mild Pain / Temp above 100 Stop: 02/24/18 16:05 Last Admin: 12/26/17 17:51 Dose: 650 mg Acetaminophen (Tylenol Extra Strength) 1,000 mg PO Q4H PRN PRN Reason: Pain (Severe) Stop: 02/24/18 20:24 Last Admin: 12/27/17 02:55 Dose: 1,000 mg Acetaminophen/Hydrocodone Bitart ([place] 5mg/325mg) 1 tab PO QID PRN PRN Reason: Pain (Moderate) Stop: 02/24/18 20:24 Last Admin: 12/29/17 00:58 Dose: 1 tab Al Hydrox/Mg Hydrox/Simethicone (Maalox) 30 ml PO Q4HR PRN PRN Reason: GI DISTRESS Stop: 02/24/18 16:05 Last Admin: 12/29/17 05:51 Dose: 30 ml Aspirin (Ecotrin) 81 mg PO DAILY [facility] Stop: 02/25/18 08:59 Last Admin: 12/29/17 08:33 Dose: 81 mg Benztropine Mesylate (Cogentin) 0.5 mg PO HS [facility] Stop: 02/24/18 20:59 Last Admin: 12/28/17 20:52 Dose: 0.5 mg Bisacodyl (Dulcolax 10 Mg Supp) 10 mg RC DAILY PRN PRN Reason: Constipation Stop: 02/24/18 20:24 Calcium Carbonate (Tums) 500 mg PO TID [facility] Stop: 02/24/18 20:59 Last Admin: 12/29/17 08:32 Dose: 500 mg Divalproex Sodium (Depakote Dr) 125 mg PO DAILY [facility]; Protocol Stop: 02/25/18 08:59 Last Admin: 12/29/17 08:34 Dose: 125 mg Divalproex Sodium (Depakote Dr) 250 mg PO HS ZAIRE; Protocol Stop: 02/24/18 20:59 Last Admin: 12/28/17 20:52 Dose: 250 mg Docusate Sodium (Colace) 250 mg PO BID ZAIRE Stop: 02/25/18 08:59 Last Admin: 12/28/17 16:26 Dose: 250 mg Donepezil HCl (Aricept) 10 mg PO DAILY ZAIRE Stop: 02/25/18 08:59 Last Admin: 12/29/17 08:32 Dose: 10 mg Fish Oil ([place] 3) 1,000 mg PO BID ZAIRE Stop: 02/25/18 08:59 Last Admin: 12/29/17 08:33 Dose: 1,000 mg Furosemide (Lasix) 40 mg PO BID ZAIRE Stop: 02/25/18 08:59 Last Admin: 12/29/17 08:29 Dose: 40 mg Lorazepam (Ativan) 0.5 mg PO Q4HR PRN; Protocol PRN Reason: Anxiety Stop: 01/26/18 06:28 Last Admin: 12/28/17 12:14 Dose: 0.5 mg Magnesium Hydroxide (Milk Of Magnesia) 30 ml PO HS PRN PRN Reason: Constipation Metoprolol Tartrate (Lopressor) 200 mg PO BID [facility] Stop: 02/25/18 08:59 Last Admin: 12/29/17 08:30 Dose: 200 mg Multivitamins/Vitamin C (Theragran) 1 tab PO DAILY ZAIRE Stop: 02/25/18 08:59 Last Admin: 12/29/17 08:32 Dose: 1 tab Potassium Chloride (Klor-Con) 20 meq PO QID ZAIRE Stop: 02/24/18 20:59 Last Admin: 12/29/17 08:28 Dose: 20 meq Pyridoxine HCl (Vitamin B6) 50 mg PO DAILY ZAIRE Stop: 02/25/18 08:59 Last Admin: 12/29/17 08:32 Dose: 50 mg Risperidone (Risperdal) 1 mg PO HS ZAIRE; Protocol Stop: 02/25/18 20:59 Last Admin: 12/28/17 20:52 Dose: 1 mg Senna (Senna) 17.2 mg PO BID ZAIRE Stop: 02/25/18 08:59 Last Admin: 12/28/17 16:27 Dose: 17.2 mg Simvastatin (Zocor) 20 mg PO HS ZAIRE; Protocol Stop: 02/25/18 20:59 Last Admin: 12/28/17 20:52 Dose: 20 mg Sodium Chloride (Nacl Tab) 2 gm PO QID ZAIRE Stop: 02/24/18 20:59 Last Admin: 12/29/17 08:31 Dose: 2 gm Sodium Phosphate (Fleet Enema) 135 ml RC DAILY PRN PRN Reason: Constipation Stop: 02/24/18 20:24 Tramadol HCl (Ultram) 50 mg PO Q6H PRN PRN Reason: Pain (Mild) Stop: 02/24/18 20:24 Last Admin: 12/29/17 08:34 Dose: 50 mg Zolpidem Tartrate (Ambien) 5 mg PO HS PRN PRN Reason: Insomnia Stop: 02/24/18 16:05 Last Admin: 12/28/17 20:52 Dose: 5 mg General: Alert, No acute distress, Other (Confused) HEENT: Atraumatic, EOMI Cardiovascular: Regular rate Lungs: Clear to auscultation Abdomen: Bowel sounds Extremities: Other (No edema) Neurological: Normal gait Skin: Other (Warm and dry) Psych/Mental Status: Other (Confused) Assessment/Plan - Assessment Assessment: Patient is awake , alert, calm, in no acute distress. Dx: Increased in agitation, HTN, CAD, CHF, Dyslipemia, Dementia, Obesity. - Plan Plan: Patient is follow by Psychiatry, will continue with SNF meds. Will continue to monitor. Nutritional Asmnt/Malnutr-PDOC - Dietary Evaluation Malnutrition Findings (Please click <Entered> for more info): Nutritional Asmnt/Malnutrition Start: 12/28/17 14: 54 Text: Status: Complete Freq: Protocol: Document 12/28/17 14:54 ALAINA (Rec: 12/28/17 15:11 ALAINA [email or web address]) Nutritional Asmnt/Malnutrition Patient General Information Nutritional Screening Moderate Risk Diagnosis psychosis Pertinent Medical Hx/Surgical Hx HTN, CAD, CHF, dyslipidemia, dementia, schizophrenia, bipolar Subjective Information Pt eating lunch in rec room at time of visit. Pt was alert and stated he has no diet preferences. Nursing noted PO intake: 100%. Current Diet Order/ Nutrition Support FABIOLA (4 gm) Pertinent Medications maalox, dulcolax, tums, colace , omega 3, lasix, MOM, theragran, klor-con, senna, zocor, Nacl tab Pertinent Labs 12/26: Na 135, Alb 3.6, triglycerides 204-206 Nutritional Hx/Data Height 1.73 m Height (Calculated Centimeters) 172.7 Current Weight (lbs) 99.79 kg Weight (Calculated Kilograms) 99.8 Weight (Calculated Grams) 26645.3 [place] Body Weight 154 lb Body Mass Index (BMI) 33.4 Weight Status Obese GI Symptoms GI Symptoms None Last BM 12/27 Difficult in: None Food Allergies No Skin Integrity/Comment: derek sykes 17 Current %PO Good (75-100%) Estimated Nutritional Goals BEE in Kcals: Adj wt of IBW Calories/Kcals/Kg 25-30 (based on adj wt 77.5 kg ) Kcals Calculated 3739-5463 Protein: Adj wt of IBW Protein g/k.0 (based on adj wt 77.5 kg) Protein Calculated 77.5 g Fluid: ml 2073-6957 (1 ml/kcal) Nutritional Problem No current Nutrition Prob Problem no nutrition dx at this time Malnutrition Alert Is there a minimum of two criteria No selected? Query Text:Check all the applicable criteria. A minimum of two criteria are recommended for diagnosis of either severe or non-severe malnutrition. Malnutrition Related to Morbid Obesity Malnutrition related to morbid obesity No Intervention/Recommendation Comments 1. Continue with FABIOLA (4 gm) diet as ordered d/t hx of HTN 2. Monitor PO intake, wt, labs and skin integrity 3. F/U as low risk in 7 days, 01/04 Expected Outcomes/Goals Expected Outcomes/Goals 1. PO intake to meet at least 75% of nutritional needs 2. Wt stability, skin to remain intact, and nutrition related labs to approach normal limits Reviewed by Denise Scherer RD
--- NOTE | 2017-12-29 22:16 | Progress Notes ---
DATE: 12/29/2017 SUBJECTIVE: The patient in the hospital, psychotic, talking about electricity. The patient believing that something is being added to the electricity to treat people in the hospital, "what is all this electricity for." The patient, mumbling to self, seemingly psychotic, bizarre, intrusive, mostly keeping to himself, paranoid appearing, remains impulsive, and unpredictable given his ongoing psychotic symptoms. History of lashing out. ASSESSMENT: The patient with ongoing psychotic symptoms, paranoia. PLAN: We will continue to monitor. I will be increasing his dosing of Risperdal to target ongoing psychotic symptoms. JOB# [id number]
[2017-12-30] MEDS: Fish Oil 1,000 MG SGL PO SCH ×2 (08:59→16:52)
[2017-12-30] MEDS: Potassium Chloride 20 mEq ER Tab PO SCH ×4 (08:59→20:52)
[2017-12-30] MEDS: Multivitamin Tab PO SCH (09:01)
--- NOTE | 2017-12-30 10:35 | General Progress Note ---
Subjective - Review of Systems Service Date: 12/30/17 Subjective: Patient is confused, calm. Objective - Results Result Diagrams: 12/26/17 13:39 12/26/17 13:39 Recent Labs: Laboratory Last Values WBC 6.1 Th/cmm (4.8-10.8) 12/26/17 13:39 RBC 4.48 Mil/cmm (3.80-5.80) 12/26/17 13:39 Hgb 14.0 gm/dL (12-16) 12/26/17 13:39 Hct 41.7 % (41.0-60) 12/26/17 13:39 MCV 92.9 fl (80-99) 12/26/17 13:39 MCH 31.2 pg (27.0-31.0) H 12/26/17 13:39 MCHC Differential 33.6 pg (28.0-36.0) 12/26/17 13:39 RDW 12.2 % (11.5-20.0) 12/26/17 13:39 Plt Count 196 Th/cmm (150-400) 12/26/17 13:39 MPV 6.8 fl 12/26/17 13:39 Neutrophils % 69.3 % (40.0-80.0) 12/26/17 13:39 Lymphocytes % 15.5 % (20.0-50.0) L 12/26/17 13:39 Monocytes % 10.3 % (2.0-10.0) H 12/26/17 13:39 Eosinophils % 4.2 % (0.0-5.0) 12/26/17 13:39 Basophils % 0.7 % (0.0-2.0) 12/26/17 13:39 Sodium 135 mEq/L (136-145) L 12/26/17 13:39 Potassium 4.9 mEq/L (3.5-5.1) 12/26/17 13:39 Chloride 99 mEq/L (98-107) 12/26/17 13:39 Carbon Dioxide 30.1 mEq/L (21.0-31.0) 12/26/17 13:39 Anion Gap 10.8 (7.0-16.0) 12/26/17 13:39 BUN 18 mg/dL (7-25) 12/26/17 13:39 Creatinine 0.9 mg/dL (0.7-1.3) 12/26/17 13:39 Est GFR ( Amer) > 60.0 ml/min (>90) 12/26/17 13:39 Est GFR (Non-Af Amer) > 60.0 ml/min 12/26/17 13:39 BUN/Creatinine Ratio 20.0 12/26/17 13:39 Glucose 104 mg/dL (70-105) 12/26/17 13:39 Calcium 9.1 mg/dL (8.6-10.3) 12/26/17 13:39 Total Bilirubin 0.6 mg/dL (0.3-1.0) 12/26/17 13:39 AST 18 U/L (13-39) 12/26/17 13:39 ALT 23 U/L (7-52) 12/26/17 13:39 Alkaline Phosphatase 78 U/L (34-104) 12/26/17 13:39 Troponin I 0.01 ng/mL (0.01-0.05) 12/26/17 13:39 Total Protein 6.9 gm/dL (6.0-8.3) 12/26/17 13:39 Albumin 3.6 gm/dL (4.2-5.5) L 12/26/17 13:39 Globulin 3.3 gm/dL 12/26/17 13:39 Albumin/Globulin Ratio 1.1 (1.0-1.8) 12/26/17 13:39 Triglycerides 206 mg/dL (<150) H 12/26/17 13:39 Cholesterol 168 mg/dL (<200) 12/26/17 13:39 LDL Cholesterol Direct 81 mg/dL (75-193) 12/26/17 13:39 HDL Cholesterol 44 mg/dL (23-92) 12/26/17 13:39 TSH 1.90 uIU/ml (0.34-5.60) 12/26/17 13:39 Urine Source CLEAN C 12/26/17 14:09 Urine Color YELLOW 12/26/17 14:09 Urine Clarity CLEAR (CLEAR) 12/26/17 14:09 Urine pH 6.0 (4.6 - 8.0) 12/26/17 14:09 Ur Specific [place] 1.010 (1.005-1.030) 12/26/17 14:09 Urine Protein NEGATIVE mg/dL (NEGATIVE) 12/26/17 14:09 Urine Glucose (UA) NEGATIVE mg/dL (NEGATIVE) 12/26/17 14:09 Urine Ketones NEGATIVE mg/dL (NEGATIVE) 12/26/17 14:09 Urine Blood NEGATIVE (NEGATIVE) 12/26/17 14:09 Urine Nitrate NEGATIVE (NEGATIVE) 12/26/17 14:09 Urine Bilirubin NEGATIVE (NEGATIVE) 12/26/17 14:09 Urine Urobilinogen 0.2 E.U./dL (0.2 - 1.0) 12/26/17 14:09 Ur Leukocyte Esterase NEGATIVE (NEGATIVE) 12/26/17 14:09 Urine RBC NONE SEEN /hpf (0-5) 12/26/17 14:09 Urine WBC 0-2 /hpf (0-5) 12/26/17 14:09 Ur Epithelial Cells FEW /lpf (FEW) 12/26/17 14:09 Urine Bacteria FEW /hpf (NONE SEEN) 12/26/17 14:09 Salicylates < 25.0 mg/L (30.0-100.0) L 12/26/17 13:39 Urine Opiates Screen POSITIVE (NEGATIVE) H 12/26/17 13:39 Urine Methadone Screen NEGATIVE (NEGATIVE) 12/26/17 13:39 Acetaminophen < 10.0 ug/mL (10.0-30.0) L 12/26/17 13:39 Ur Barbiturates Screen NEGATIVE (NEGATIVE) 12/26/17 13:39 Ur Tricyclics Screen NEGATIVE (NEGATIVE) 12/26/17 13:39 Ur Phencyclidine Scrn NEGATIVE (NEGATIVE) 12/26/17 13:39 Amphetamines Screen NEGATIVE (NEGATIVE) 12/26/17 13:39 U Methamphetamines Scrn NEGATIVE (NEGATIVE) 12/26/17 13:39 U Benzodiazepines Scrn NEGATIVE (NEGATIVE) 12/26/17 13:39 U Cocaine Metab Screen NEGATIVE (NEGATIVE) 12/26/17 13:39 U Cannabinoids Screen NEGATIVE (NEGATIVE) 12/26/17 13:39 Ethyl Alcohol < 10 mg/dL (0-10) 12/26/17 13:39 RPR NONREACTIVE (NONREACTIVE) 12/26/17 13:39 - Physical Exam Vitals and I&O: Vital Signs Temp 98.1 F 12/30/17 06:00 Pulse 74 12/30/17 08:57 Resp 20 12/30/17 06:00 BP 145/90 12/30/17 09:01 Pulse Ox 97 12/30/17 06:00 Intake & Output 12/29/17 12/30/17 12/30/17 18:59 06:59 18:59 Intake Total 1840 Balance 1840 Intake: Oral 1840 Other: # Voids 3 # Bowel Movements 0 Active Medications: Current Medications Acetaminophen (Tylenol) 650 mg PO Q4HR PRN PRN Reason: Mild Pain / Temp above 100 Stop: 02/24/18 16:05 Last Admin: 12/26/17 17:51 Dose: 650 mg Acetaminophen (Tylenol Extra Strength) 1,000 mg PO Q4H PRN PRN Reason: Pain (Severe) Stop: 02/24/18 20:24 Last Admin: 12/27/17 02:55 Dose: 1,000 mg Acetaminophen/Hydrocodone Bitart ([place] 5mg/325mg) 1 tab PO QID PRN PRN Reason: Pain (Moderate) Stop: 02/24/18 20:24 Last Admin: 12/29/17 21:09 Dose: 1 tab Al Hydrox/Mg Hydrox/Simethicone (Maalox) 30 ml PO Q4HR PRN PRN Reason: GI DISTRESS Stop: 02/24/18 16:05 Last Admin: 12/29/17 05:51 Dose: 30 ml Aspirin (Ecotrin) 81 mg PO DAILY [facility] Stop: 02/25/18 08:59 Last Admin: 12/30/17 09:00 Dose: 81 mg Benztropine Mesylate (Cogentin) 0.5 mg PO HS [facility] Stop: 02/24/18 20:59 Last Admin: 12/29/17 21:09 Dose: 0.5 mg Bisacodyl (Dulcolax 10 Mg Supp) 10 mg RC DAILY PRN PRN Reason: Constipation Stop: 02/24/18 20:24 Calcium Carbonate (Tums) 500 mg PO TID [facility] Stop: 02/24/18 20:59 Last Admin: 12/30/17 09:00 Dose: 500 mg Divalproex Sodium (Depakote Dr) 125 mg PO DAILY [facility]; Protocol Stop: 02/25/18 08:59 Last Admin: 12/30/17 09:01 Dose: 125 mg Divalproex Sodium (Depakote Dr) 250 mg PO HS ZAIRE; Protocol Stop: 02/24/18 20:59 Last Admin: 12/29/17 21:09 Dose: 250 mg Docusate Sodium (Colace) 250 mg PO BID ZAIRE Stop: 02/25/18 08:59 Last Admin: 12/30/17 09:02 Dose: Not Given Donepezil HCl (Aricept) 10 mg PO DAILY ZAIRE Stop: 02/25/18 08:59 Last Admin: 12/30/17 09:00 Dose: 10 mg Fish Oil ([place] 3) 1,000 mg PO BID ZAIRE Stop: 02/25/18 08:59 Last Admin: 12/30/17 08:59 Dose: 1,000 mg Furosemide (Lasix) 40 mg PO BID ZAIRE Stop: 02/25/18 08:59 Last Admin: 12/30/17 09:01 Dose: 40 mg Lorazepam (Ativan) 0.5 mg PO Q4HR PRN; Protocol PRN Reason: Anxiety Stop: 01/26/18 06:28 Last Admin: 12/29/17 14:50 Dose: 0.5 mg Magnesium Hydroxide (Milk Of Magnesia) 30 ml PO HS PRN PRN Reason: Constipation Metoprolol Tartrate (Lopressor) 200 mg PO BID [facility] Stop: 02/25/18 08:59 Last Admin: 12/30/17 08:57 Dose: 200 mg Multivitamins/Vitamin C (Theragran) 1 tab PO DAILY ZAIRE Stop: 02/25/18 08:59 Last Admin: 12/30/17 09:01 Dose: 1 tab Potassium Chloride (Klor-Con) 20 meq PO QID ZAIRE Stop: 02/24/18 20:59 Last Admin: 12/30/17 08:59 Dose: 20 meq Pyridoxine HCl (Vitamin B6) 50 mg PO DAILY ZAIRE Stop: 02/25/18 08:59 Last Admin: 12/30/17 09:00 Dose: 50 mg Risperidone (Risperdal) 1.5 mg PO HS [facility]; Protocol Stop: 02/27/18 20:59 Last Admin: 12/29/17 21:10 Dose: 1.5 mg Senna (Senna) 17.2 mg PO BID [facility] Stop: 02/25/18 08:59 Last Admin: 12/30/17 09:03 Dose: Not Given Simvastatin (Zocor) 20 mg PO HS ZAIRE; Protocol Stop: 02/25/18 20:59 Last Admin: 12/29/17 21:09 Dose: 20 mg Sodium Chloride (Nacl Tab) 2 gm PO QID ZAIRE Stop: 02/24/18 20:59 Last Admin: 12/30/17 08:59 Dose: 2 gm Sodium Phosphate (Fleet Enema) 135 ml RC DAILY PRN PRN Reason: Constipation Stop: 02/24/18 20:24 Tramadol HCl (Ultram) 50 mg PO Q6H PRN PRN Reason: Pain (Mild) Stop: 02/24/18 20:24 Last Admin: 12/30/17 02:43 Dose: 50 mg Zolpidem Tartrate (Ambien) 5 mg PO HS PRN PRN Reason: Insomnia Stop: 02/24/18 16:05 Last Admin: 12/28/17 20:52 Dose: 5 mg General: Alert, No acute distress, Other (Confused) HEENT: Atraumatic, EOMI Cardiovascular: Regular rate Lungs: Clear to auscultation Abdomen: Bowel sounds Extremities: Other (No edema) Neurological: Normal gait Skin: Other (Warm and dry) Psych/Mental Status: Other (Confused) Assessment/Plan - Assessment Assessment: Patient is awake , alert, calm, in no acute distress. Dx: Increased in agitation, HTN, CAD, CHF, Dyslipemia, Dementia, Obesity. - Plan Plan: Patient is follow by Psychiatry, will continue with SNF meds. Will continue to monitor. Nutritional Asmnt/Malnutr-PDOC - Dietary Evaluation Malnutrition Findings (Please click <Entered> for more info): Nutritional Asmnt/Malnutrition Start: 12/28/17 14: 54 Text: Status: Complete Freq: Protocol: Document 12/28/17 14:54 ALAINA (Rec: 12/28/17 15:11 ALAINA [email or web address]) Nutritional Asmnt/Malnutrition Patient General Information Nutritional Screening Moderate Risk Diagnosis psychosis Pertinent Medical Hx/Surgical Hx HTN, CAD, CHF, dyslipidemia, dementia, schizophrenia, bipolar Subjective Information Pt eating lunch in rec room at time of visit. Pt was alert and stated he has no diet preferences. Nursing noted PO intake: 100%. Current Diet Order/ Nutrition Support FABIOLA (4 gm) Pertinent Medications maalox, dulcolax, tums, colace , omega 3, lasix, MOM, theragran, klor-con, senna, zocor, Nacl tab Pertinent Labs 12/26: Na 135, Alb 3.6, triglycerides 204-206 Nutritional Hx/Data Height 1.73 m Height (Calculated Centimeters) 172.7 Current Weight (lbs) 99.79 kg Weight (Calculated Kilograms) 99.8 Weight (Calculated Grams) 57206.3 [place] Body Weight 154 lb Body Mass Index (BMI) 33.4 Weight Status Obese GI Symptoms GI Symptoms None Last BM 12/27 Difficult in: None Food Allergies No Skin Integrity/Comment: derek sykes 17 Current %PO Good (75-100%) Estimated Nutritional Goals BEE in Kcals: Adj wt of IBW Calories/Kcals/Kg 25-30 (based on adj wt 77.5 kg ) Kcals Calculated 5072-5843 Protein: Adj wt of IBW Protein g/k.0 (based on adj wt 77.5 kg) Protein Calculated 77.5 g Fluid: ml 0537-6011 (1 ml/kcal) Nutritional Problem No current Nutrition Prob Problem no nutrition dx at this time Malnutrition Alert Is there a minimum of two criteria No selected? Query Text:Check all the applicable criteria. A minimum of two criteria are recommended for diagnosis of either severe or non-severe malnutrition. Malnutrition Related to Morbid Obesity Malnutrition related to morbid obesity No Intervention/Recommendation Comments 1. Continue with FABIOLA (4 gm) diet as ordered d/t hx of HTN 2. Monitor PO intake, wt, labs and skin integrity 3. F/U as low risk in 7 days, 01/04 Expected Outcomes/Goals Expected Outcomes/Goals 1. PO intake to meet at least 75% of nutritional needs 2. Wt stability, skin to remain intact, and nutrition related labs to approach normal limits Reviewed by Denise Scherer RD
--- NOTE | 2017-12-30 11:28 | Progress Notes ---
DATE: 12/30/2017 SUBJECTIVE: The patient seen, chart reviewed, discussed with staff. The patient remains psychotic, still talking about electricity, electrocution, believing that the electric company is putting something in the electricity to affect people's thinking. The patient remains isolative, withdrawn, bizarre, still ongoing psychotic symptoms, slept fairly well last night, calm at this time, redirectable. Medications were noted. No side effects. ASSESSMENT: The patient remains psychotic, symptomatic, delusional, not safe for a lower level of care. PLAN: We will continue to monitor, titrate and adjust medications. Given his ongoing symptoms, there are ongoing safety concerns. JOB# [id number]
[2017-12-30] MEDS: Hydrocodone/APAP 5mg/325mg Tab PO PRN (20:52)
[2017-12-31] MEDS: Maalox 30 mL Cup PO PRN (04:20)
[2017-12-31] MEDS: Fish Oil 1,000 MG SGL PO SCH ×2 (09:40→16:33)
[2017-12-31] MEDS: Multivitamin Tab PO SCH (09:41)
[2017-12-31] MEDS: Potassium Chloride 20 mEq ER Tab PO SCH ×4 (09:41→20:45)
[2017-12-31] MEDS: Hydrocodone/APAP 5mg/325mg Tab PO PRN ×3 (09:42→22:21)
--- NOTE | 2017-12-31 11:00 | General Progress Note ---
Subjective - Review of Systems Service Date: 12/31/17 Subjective: Patient is confused, calm. Objective - Results Result Diagrams: 12/26/17 13:39 12/26/17 13:39 Recent Labs: Laboratory Last Values WBC 6.1 Th/cmm (4.8-10.8) 12/26/17 13:39 RBC 4.48 Mil/cmm (3.80-5.80) 12/26/17 13:39 Hgb 14.0 gm/dL (12-16) 12/26/17 13:39 Hct 41.7 % (41.0-60) 12/26/17 13:39 MCV 92.9 fl (80-99) 12/26/17 13:39 MCH 31.2 pg (27.0-31.0) H 12/26/17 13:39 MCHC Differential 33.6 pg (28.0-36.0) 12/26/17 13:39 RDW 12.2 % (11.5-20.0) 12/26/17 13:39 Plt Count 196 Th/cmm (150-400) 12/26/17 13:39 MPV 6.8 fl 12/26/17 13:39 Neutrophils % 69.3 % (40.0-80.0) 12/26/17 13:39 Lymphocytes % 15.5 % (20.0-50.0) L 12/26/17 13:39 Monocytes % 10.3 % (2.0-10.0) H 12/26/17 13:39 Eosinophils % 4.2 % (0.0-5.0) 12/26/17 13:39 Basophils % 0.7 % (0.0-2.0) 12/26/17 13:39 Sodium 135 mEq/L (136-145) L 12/26/17 13:39 Potassium 4.9 mEq/L (3.5-5.1) 12/26/17 13:39 Chloride 99 mEq/L (98-107) 12/26/17 13:39 Carbon Dioxide 30.1 mEq/L (21.0-31.0) 12/26/17 13:39 Anion Gap 10.8 (7.0-16.0) 12/26/17 13:39 BUN 18 mg/dL (7-25) 12/26/17 13:39 Creatinine 0.9 mg/dL (0.7-1.3) 12/26/17 13:39 Est GFR ( Amer) > 60.0 ml/min (>90) 12/26/17 13:39 Est GFR (Non-Af Amer) > 60.0 ml/min 12/26/17 13:39 BUN/Creatinine Ratio 20.0 12/26/17 13:39 Glucose 104 mg/dL (70-105) 12/26/17 13:39 Calcium 9.1 mg/dL (8.6-10.3) 12/26/17 13:39 Total Bilirubin 0.6 mg/dL (0.3-1.0) 12/26/17 13:39 AST 18 U/L (13-39) 12/26/17 13:39 ALT 23 U/L (7-52) 12/26/17 13:39 Alkaline Phosphatase 78 U/L (34-104) 12/26/17 13:39 Troponin I 0.01 ng/mL (0.01-0.05) 12/26/17 13:39 Total Protein 6.9 gm/dL (6.0-8.3) 12/26/17 13:39 Albumin 3.6 gm/dL (4.2-5.5) L 12/26/17 13:39 Globulin 3.3 gm/dL 12/26/17 13:39 Albumin/Globulin Ratio 1.1 (1.0-1.8) 12/26/17 13:39 Triglycerides 206 mg/dL (<150) H 12/26/17 13:39 Cholesterol 168 mg/dL (<200) 12/26/17 13:39 LDL Cholesterol Direct 81 mg/dL (75-193) 12/26/17 13:39 HDL Cholesterol 44 mg/dL (23-92) 12/26/17 13:39 TSH 1.90 uIU/ml (0.34-5.60) 12/26/17 13:39 Urine Source CLEAN C 12/26/17 14:09 Urine Color YELLOW 12/26/17 14:09 Urine Clarity CLEAR (CLEAR) 12/26/17 14:09 Urine pH 6.0 (4.6 - 8.0) 12/26/17 14:09 Ur Specific [place] 1.010 (1.005-1.030) 12/26/17 14:09 Urine Protein NEGATIVE mg/dL (NEGATIVE) 12/26/17 14:09 Urine Glucose (UA) NEGATIVE mg/dL (NEGATIVE) 12/26/17 14:09 Urine Ketones NEGATIVE mg/dL (NEGATIVE) 12/26/17 14:09 Urine Blood NEGATIVE (NEGATIVE) 12/26/17 14:09 Urine Nitrate NEGATIVE (NEGATIVE) 12/26/17 14:09 Urine Bilirubin NEGATIVE (NEGATIVE) 12/26/17 14:09 Urine Urobilinogen 0.2 E.U./dL (0.2 - 1.0) 12/26/17 14:09 Ur Leukocyte Esterase NEGATIVE (NEGATIVE) 12/26/17 14:09 Urine RBC NONE SEEN /hpf (0-5) 12/26/17 14:09 Urine WBC 0-2 /hpf (0-5) 12/26/17 14:09 Ur Epithelial Cells FEW /lpf (FEW) 12/26/17 14:09 Urine Bacteria FEW /hpf (NONE SEEN) 12/26/17 14:09 Salicylates < 25.0 mg/L (30.0-100.0) L 12/26/17 13:39 Urine Opiates Screen POSITIVE (NEGATIVE) H 12/26/17 13:39 Urine Methadone Screen NEGATIVE (NEGATIVE) 12/26/17 13:39 Acetaminophen < 10.0 ug/mL (10.0-30.0) L 12/26/17 13:39 Ur Barbiturates Screen NEGATIVE (NEGATIVE) 12/26/17 13:39 Ur Tricyclics Screen NEGATIVE (NEGATIVE) 12/26/17 13:39 Ur Phencyclidine Scrn NEGATIVE (NEGATIVE) 12/26/17 13:39 Amphetamines Screen NEGATIVE (NEGATIVE) 12/26/17 13:39 U Methamphetamines Scrn NEGATIVE (NEGATIVE) 12/26/17 13:39 U Benzodiazepines Scrn NEGATIVE (NEGATIVE) 12/26/17 13:39 U Cocaine Metab Screen NEGATIVE (NEGATIVE) 12/26/17 13:39 U Cannabinoids Screen NEGATIVE (NEGATIVE) 12/26/17 13:39 Ethyl Alcohol < 10 mg/dL (0-10) 12/26/17 13:39 RPR NONREACTIVE (NONREACTIVE) 12/26/17 13:39 - Physical Exam Vitals and I&O: Vital Signs Temp 98.0 F 12/30/17 21:26 Pulse 59 12/31/17 07:04 Resp 18 12/31/17 07:04 BP 137/77 12/31/17 07:04 Pulse Ox 98 12/31/17 07:04 Intake & Output 12/30/17 12/31/17 12/31/17 18:59 06:59 18:59 Intake Total 1000 Balance 1000 Intake: Oral 1000 Other: # Voids 4 # Bowel Movements 1 Active Medications: Current Medications Acetaminophen (Tylenol) 650 mg PO Q4HR PRN PRN Reason: Mild Pain / Temp above 100 Stop: 02/24/18 16:05 Last Admin: 12/26/17 17:51 Dose: 650 mg Acetaminophen (Tylenol Extra Strength) 1,000 mg PO Q4H PRN PRN Reason: Pain (Severe) Stop: 02/24/18 20:24 Last Admin: 12/27/17 02:55 Dose: 1,000 mg Acetaminophen/Hydrocodone Bitart ([place] 5mg/325mg) 1 tab PO QID PRN PRN Reason: Pain (Moderate) Stop: 02/24/18 20:24 Last Admin: 12/31/17 09:42 Dose: 1 tab Al Hydrox/Mg Hydrox/Simethicone (Maalox) 30 ml PO Q4HR PRN PRN Reason: GI DISTRESS Stop: 02/24/18 16:05 Last Admin: 12/31/17 04:20 Dose: 30 ml Aspirin (Ecotrin) 81 mg PO DAILY [facility] Stop: 02/25/18 08:59 Last Admin: 12/31/17 09:39 Dose: 81 mg Benztropine Mesylate (Cogentin) 0.5 mg PO HS [facility] Stop: 02/24/18 20:59 Last Admin: 12/30/17 20:52 Dose: 0.5 mg Bisacodyl (Dulcolax 10 Mg Supp) 10 mg RC DAILY PRN PRN Reason: Constipation Stop: 02/24/18 20:24 Calcium Carbonate (Tums) 500 mg PO TID [facility] Stop: 02/24/18 20:59 Last Admin: 12/31/17 09:39 Dose: 500 mg Divalproex Sodium (Depakote Dr) 125 mg PO DAILY [facility]; Protocol Stop: 02/25/18 08:59 Last Admin: 12/31/17 09:40 Dose: 125 mg Divalproex Sodium (Depakote Dr) 250 mg PO HS [facility]; Protocol Stop: 02/24/18 20:59 Last Admin: 12/30/17 20:51 Dose: 250 mg Docusate Sodium (Colace) 250 mg PO BID [facility] Stop: 02/25/18 08:59 Last Admin: 12/31/17 09:40 Dose: 250 mg Donepezil HCl (Aricept) 10 mg PO DAILY [facility] Stop: 02/25/18 08:59 Last Admin: 12/31/17 09:40 Dose: 10 mg Fish Oil ([place] 3) 1,000 mg PO BID [facility] Stop: 02/25/18 08:59 Last Admin: 12/31/17 09:40 Dose: 1,000 mg Furosemide (Lasix) 40 mg PO BID [facility] Stop: 02/25/18 08:59 Last Admin: 12/31/17 09:41 Dose: Not Given Lorazepam (Ativan) 0.5 mg PO Q4HR PRN; Protocol PRN Reason: Anxiety Stop: 01/26/18 06:28 Last Admin: 12/30/17 12:01 Dose: 0.5 mg Magnesium Hydroxide (Milk Of Magnesia) 30 ml PO HS PRN PRN Reason: Constipation Metoprolol Tartrate (Lopressor) 200 mg PO BID [facility] Stop: 02/25/18 08:59 Last Admin: 12/31/17 09:41 Dose: Not Given Multivitamins/Vitamin C (Theragran) 1 tab PO DAILY [facility] Stop: 02/25/18 08:59 Last Admin: 12/31/17 09:41 Dose: Not Given Potassium Chloride (Klor-Con) 20 meq PO QID [facility] Stop: 02/24/18 20:59 Last Admin: 12/31/17 09:41 Dose: 20 meq Pyridoxine HCl (Vitamin B6) 50 mg PO DAILY [facility] Stop: 02/25/18 08:59 Last Admin: 12/31/17 09:41 Dose: 50 mg Risperidone (Risperdal) 1.5 mg PO HS [facility]; Protocol Stop: 02/27/18 20:59 Last Admin: 12/30/17 20:52 Dose: 1.5 mg Senna (Senna) 17.2 mg PO BID [facility] Stop: 02/25/18 08:59 Last Admin: 12/31/17 09:41 Dose: 17.2 mg Simvastatin (Zocor) 20 mg PO HS [facility]; Protocol Stop: 02/25/18 20:59 Last Admin: 12/30/17 20:52 Dose: 20 mg Sodium Chloride (Nacl Tab) 2 gm PO QID [facility] Stop: 02/24/18 20:59 Last Admin: 12/31/17 09:42 Dose: 2 gm Sodium Phosphate (Fleet Enema) 135 ml RC DAILY PRN PRN Reason: Constipation Stop: 02/24/18 20:24 Tramadol HCl (Ultram) 50 mg PO Q6H PRN PRN Reason: Pain (Mild) Stop: 02/24/18 20:24 Last Admin: 12/30/17 14:20 Dose: 50 mg Zolpidem Tartrate (Ambien) 5 mg PO HS PRN PRN Reason: Insomnia Stop: 02/24/18 16:05 Last Admin: 12/30/17 20:51 Dose: 5 mg General: Alert, No acute distress, Other (Confused) HEENT: Atraumatic, EOMI Cardiovascular: Regular rate Lungs: Clear to auscultation Abdomen: Bowel sounds Extremities: Other (No edema) Neurological: Normal gait Skin: Other (Warm and dry) Psych/Mental Status: Other (Confused) Assessment/Plan - Assessment Assessment: Patient is awake , alert, calm, in no acute distress. Dx: Increased in agitation, HTN, CAD, CHF, Dyslipemia, Dementia, Obesity. - Plan Plan: Patient is follow by Psychiatry, will continue with SNF meds. Will continue to monitor. Nutritional Asmnt/Malnutr-PDOC - Dietary Evaluation Malnutrition Findings (Please click <Entered> for more info): Nutritional Asmnt/Malnutrition Start: 12/28/17 14: 54 Text: Status: Complete Freq: Protocol: Document 12/28/17 14:54 ALAINA (Rec: 12/28/17 15:11 ALAINA [email or web address]) Nutritional Asmnt/Malnutrition Patient General Information Nutritional Screening Moderate Risk Diagnosis psychosis Pertinent Medical Hx/Surgical Hx HTN, CAD, CHF, dyslipidemia, dementia, schizophrenia, bipolar Subjective Information Pt eating lunch in rec room at time of visit. Pt was alert and stated he has no diet preferences. Nursing noted PO intake: 100%. Current Diet Order/ Nutrition Support FABIOLA (4 gm) Pertinent Medications maalox, dulcolax, tums, colace , omega 3, lasix, MOM, theragran, klor-con, senna, zocor, Nacl tab Pertinent Labs 12/26: Na 135, Alb 3.6, triglycerides 204-206 Nutritional Hx/Data Height 1.73 m Height (Calculated Centimeters) 172.7 Current Weight (lbs) 99.79 kg Weight (Calculated Kilograms) 99.8 Weight (Calculated Grams) 11065.3 [place] Body Weight 154 lb Body Mass Index (BMI) 33.4 Weight Status Obese GI Symptoms GI Symptoms None Last BM 12/27 Difficult in: None Food Allergies No Skin Integrity/Comment: jeremie sykesen 17 Current %PO Good (75-100%) Estimated Nutritional Goals BEE in Kcals: Adj wt of IBW Calories/Kcals/Kg 25-30 (based on adj wt 77.5 kg ) Kcals Calculated 0792-8341 Protein: Adj wt of IBW Protein g/k.0 (based on adj wt 77.5 kg) Protein Calculated 77.5 g Fluid: ml 6143-0046 (1 ml/kcal) Nutritional Problem No current Nutrition Prob Problem no nutrition dx at this time Malnutrition Alert Is there a minimum of two criteria No selected? Query Text:Check all the applicable criteria. A minimum of two criteria are recommended for diagnosis of either severe or non-severe malnutrition. Malnutrition Related to Morbid Obesity Malnutrition related to morbid obesity No Intervention/Recommendation Comments 1. Continue with FABIOLA (4 gm) diet as ordered d/t hx of HTN 2. Monitor PO intake, wt, labs and skin integrity 3. F/U as low risk in 7 days, 01/04 Expected Outcomes/Goals Expected Outcomes/Goals 1. PO intake to meet at least 75% of nutritional needs 2. Wt stability, skin to remain intact, and nutrition related labs to approach normal limits Reviewed by Denise Scherer RD
--- NOTE | 2017-12-31 12:13 | Progress Notes ---
DATE: SUBJECTIVE: The patient seen, chart reviewed, discussed with staff. The patient remains in the hospital seeking medications because he is talking about "electrical pain" in his hands and arms. The patient still believing that the electricity is tainted, bizarre, symptomatic, still with ongoing psychotic symptoms. He has been calmer, more cooperative, seems to be medication compliant, eating fairly well, sleeping fairly well. ASSESSMENT: The patient is still bizarre, symptomatic, ongoing psychotic symptoms. PLAN: We will continue to monitor, titrate and adjust medications. Given his ongoing symptoms, he is not safe for discharge. Seems to be tolerating titration of antipsychotic. JOB# [id number]
[2018-01-01] MEDS: Maalox 30 mL Cup PO PRN (00:10)
[2018-01-01] MEDS: Acetaminophen 500 MG TAB PO PRN (03:33)
[2018-01-01] MEDS: Fish Oil 1,000 MG SGL PO SCH ×2 (08:37→16:51)
[2018-01-01] MEDS: Potassium Chloride 20 mEq ER Tab PO SCH ×4 (08:39→20:26)
[2018-01-01] MEDS: Multivitamin Tab PO SCH (08:40)
[2018-01-01] MEDS: Hydrocodone/APAP 5mg/325mg Tab PO PRN ×2 (08:40→18:35)
--- NOTE | 2018-01-01 08:57 | General Progress Note ---
Subjective - Review of Systems Service Date: 01/01/18 Subjective: Patient is confused, calm. Objective - Results Result Diagrams: 12/26/17 13:39 12/26/17 13:39 Recent Labs: Laboratory Last Values WBC 6.1 Th/cmm (4.8-10.8) 12/26/17 13:39 RBC 4.48 Mil/cmm (3.80-5.80) 12/26/17 13:39 Hgb 14.0 gm/dL (12-16) 12/26/17 13:39 Hct 41.7 % (41.0-60) 12/26/17 13:39 MCV 92.9 fl (80-99) 12/26/17 13:39 MCH 31.2 pg (27.0-31.0) H 12/26/17 13:39 MCHC Differential 33.6 pg (28.0-36.0) 12/26/17 13:39 RDW 12.2 % (11.5-20.0) 12/26/17 13:39 Plt Count 196 Th/cmm (150-400) 12/26/17 13:39 MPV 6.8 fl 12/26/17 13:39 Neutrophils % 69.3 % (40.0-80.0) 12/26/17 13:39 Lymphocytes % 15.5 % (20.0-50.0) L 12/26/17 13:39 Monocytes % 10.3 % (2.0-10.0) H 12/26/17 13:39 Eosinophils % 4.2 % (0.0-5.0) 12/26/17 13:39 Basophils % 0.7 % (0.0-2.0) 12/26/17 13:39 Sodium 135 mEq/L (136-145) L 12/26/17 13:39 Potassium 4.9 mEq/L (3.5-5.1) 12/26/17 13:39 Chloride 99 mEq/L (98-107) 12/26/17 13:39 Carbon Dioxide 30.1 mEq/L (21.0-31.0) 12/26/17 13:39 Anion Gap 10.8 (7.0-16.0) 12/26/17 13:39 BUN 18 mg/dL (7-25) 12/26/17 13:39 Creatinine 0.9 mg/dL (0.7-1.3) 12/26/17 13:39 Est GFR ( Amer) > 60.0 ml/min (>90) 12/26/17 13:39 Est GFR (Non-Af Amer) > 60.0 ml/min 12/26/17 13:39 BUN/Creatinine Ratio 20.0 12/26/17 13:39 Glucose 104 mg/dL (70-105) 12/26/17 13:39 Calcium 9.1 mg/dL (8.6-10.3) 12/26/17 13:39 Total Bilirubin 0.6 mg/dL (0.3-1.0) 12/26/17 13:39 AST 18 U/L (13-39) 12/26/17 13:39 ALT 23 U/L (7-52) 12/26/17 13:39 Alkaline Phosphatase 78 U/L (34-104) 12/26/17 13:39 Troponin I 0.01 ng/mL (0.01-0.05) 12/26/17 13:39 Total Protein 6.9 gm/dL (6.0-8.3) 12/26/17 13:39 Albumin 3.6 gm/dL (4.2-5.5) L 12/26/17 13:39 Globulin 3.3 gm/dL 12/26/17 13:39 Albumin/Globulin Ratio 1.1 (1.0-1.8) 12/26/17 13:39 Triglycerides 206 mg/dL (<150) H 12/26/17 13:39 Cholesterol 168 mg/dL (<200) 12/26/17 13:39 LDL Cholesterol Direct 81 mg/dL (75-193) 12/26/17 13:39 HDL Cholesterol 44 mg/dL (23-92) 12/26/17 13:39 TSH 1.90 uIU/ml (0.34-5.60) 12/26/17 13:39 Urine Source CLEAN C 12/26/17 14:09 Urine Color YELLOW 12/26/17 14:09 Urine Clarity CLEAR (CLEAR) 12/26/17 14:09 Urine pH 6.0 (4.6 - 8.0) 12/26/17 14:09 Ur Specific [place] 1.010 (1.005-1.030) 12/26/17 14:09 Urine Protein NEGATIVE mg/dL (NEGATIVE) 12/26/17 14:09 Urine Glucose (UA) NEGATIVE mg/dL (NEGATIVE) 12/26/17 14:09 Urine Ketones NEGATIVE mg/dL (NEGATIVE) 12/26/17 14:09 Urine Blood NEGATIVE (NEGATIVE) 12/26/17 14:09 Urine Nitrate NEGATIVE (NEGATIVE) 12/26/17 14:09 Urine Bilirubin NEGATIVE (NEGATIVE) 12/26/17 14:09 Urine Urobilinogen 0.2 E.U./dL (0.2 - 1.0) 12/26/17 14:09 Ur Leukocyte Esterase NEGATIVE (NEGATIVE) 12/26/17 14:09 Urine RBC NONE SEEN /hpf (0-5) 12/26/17 14:09 Urine WBC 0-2 /hpf (0-5) 12/26/17 14:09 Ur Epithelial Cells FEW /lpf (FEW) 12/26/17 14:09 Urine Bacteria FEW /hpf (NONE SEEN) 12/26/17 14:09 Salicylates < 25.0 mg/L (30.0-100.0) L 12/26/17 13:39 Urine Opiates Screen POSITIVE (NEGATIVE) H 12/26/17 13:39 Urine Methadone Screen NEGATIVE (NEGATIVE) 12/26/17 13:39 Acetaminophen < 10.0 ug/mL (10.0-30.0) L 12/26/17 13:39 Ur Barbiturates Screen NEGATIVE (NEGATIVE) 12/26/17 13:39 Ur Tricyclics Screen NEGATIVE (NEGATIVE) 12/26/17 13:39 Ur Phencyclidine Scrn NEGATIVE (NEGATIVE) 12/26/17 13:39 Amphetamines Screen NEGATIVE (NEGATIVE) 12/26/17 13:39 U Methamphetamines Scrn NEGATIVE (NEGATIVE) 12/26/17 13:39 U Benzodiazepines Scrn NEGATIVE (NEGATIVE) 12/26/17 13:39 U Cocaine Metab Screen NEGATIVE (NEGATIVE) 12/26/17 13:39 U Cannabinoids Screen NEGATIVE (NEGATIVE) 12/26/17 13:39 Ethyl Alcohol < 10 mg/dL (0-10) 12/26/17 13:39 RPR NONREACTIVE (NONREACTIVE) 12/26/17 13:39 - Physical Exam Vitals and I&O: Vital Signs Temp 98.3 F 01/01/18 06:37 Pulse 72 01/01/18 08:39 Resp 18 01/01/18 06:37 BP 146/75 01/01/18 08:39 Pulse Ox 97 01/01/18 06:37 Intake & Output 12/31/17 01/01/18 01/01/18 18:59 06:59 18:59 Intake Total 240 Balance 240 Intake: Oral 240 Other: # Voids 2 Active Medications: Current Medications Acetaminophen (Tylenol) 650 mg PO Q4HR PRN PRN Reason: Mild Pain / Temp above 100 Stop: 02/24/18 16:05 Last Admin: 12/26/17 17:51 Dose: 650 mg Acetaminophen (Tylenol Extra Strength) 1,000 mg PO Q4H PRN PRN Reason: Pain (Severe) Stop: 02/24/18 20:24 Last Admin: 01/01/18 03:33 Dose: 1,000 mg Acetaminophen/Hydrocodone Bitart ([place] 5mg/325mg) 1 tab PO QID PRN PRN Reason: Pain (Moderate) Stop: 02/24/18 20:24 Last Admin: 01/01/18 08:40 Dose: 1 tab Al Hydrox/Mg Hydrox/Simethicone (Maalox) 30 ml PO Q4HR PRN PRN Reason: GI DISTRESS Stop: 02/24/18 16:05 Last Admin: 01/01/18 00:10 Dose: 30 ml Aspirin (Ecotrin) 81 mg PO DAILY [facility] Stop: 02/25/18 08:59 Last Admin: 01/01/18 08:39 Dose: 81 mg Benztropine Mesylate (Cogentin) 0.5 mg PO HS [facility] Stop: 02/24/18 20:59 Last Admin: 12/31/17 20:44 Dose: 0.5 mg Bisacodyl (Dulcolax 10 Mg Supp) 10 mg RC DAILY PRN PRN Reason: Constipation Stop: 02/24/18 20:24 Calcium Carbonate (Tums) 500 mg PO TID [facility] Stop: 02/24/18 20:59 Last Admin: 01/01/18 08:40 Dose: 500 mg Divalproex Sodium (Depakote Dr) 125 mg PO DAILY [facility]; Protocol Stop: 02/25/18 08:59 Last Admin: 01/01/18 08:37 Dose: 125 mg Divalproex Sodium (Depakote Dr) 250 mg PO HS [facility]; Protocol Stop: 02/24/18 20:59 Last Admin: 12/31/17 20:44 Dose: 250 mg Docusate Sodium (Colace) 250 mg PO BID [facility] Stop: 02/25/18 08:59 Last Admin: 01/01/18 08:40 Dose: 250 mg Donepezil HCl (Aricept) 10 mg PO DAILY [facility] Stop: 02/25/18 08:59 Last Admin: 01/01/18 08:37 Dose: 10 mg Fish Oil ([place] 3) 1,000 mg PO BID [facility] Stop: 02/25/18 08:59 Last Admin: 01/01/18 08:37 Dose: 1,000 mg Furosemide (Lasix) 40 mg PO BID [facility] Stop: 02/25/18 08:59 Last Admin: 01/01/18 08:39 Dose: 40 mg Lorazepam (Ativan) 0.5 mg PO Q4HR PRN; Protocol PRN Reason: Anxiety Stop: 01/26/18 06:28 Last Admin: 12/30/17 12:01 Dose: 0.5 mg Magnesium Hydroxide (Milk Of Magnesia) 30 ml PO HS PRN PRN Reason: Constipation Metoprolol Tartrate (Lopressor) 200 mg PO BID [facility] Stop: 02/25/18 08:59 Last Admin: 01/01/18 08:39 Dose: 200 mg Multivitamins/Vitamin C (Theragran) 1 tab PO DAILY [facility] Stop: 02/25/18 08:59 Last Admin: 01/01/18 08:40 Dose: 1 tab Potassium Chloride (Klor-Con) 20 meq PO QID [facility] Stop: 02/24/18 20:59 Last Admin: 01/01/18 08:39 Dose: 20 meq Pyridoxine HCl (Vitamin B6) 50 mg PO DAILY [facility] Stop: 02/25/18 08:59 Last Admin: 01/01/18 08:40 Dose: 50 mg Risperidone (Risperdal) 1.5 mg PO HS [facility]; Protocol Stop: 02/27/18 20:59 Last Admin: 12/31/17 20:45 Dose: 1.5 mg Senna (Senna) 17.2 mg PO BID [facility] Stop: 02/25/18 08:59 Last Admin: 01/01/18 08:40 Dose: 17.2 mg Simvastatin (Zocor) 20 mg PO HS [facility]; Protocol Stop: 02/25/18 20:59 Last Admin: 12/31/17 20:45 Dose: 20 mg Sodium Chloride (Nacl Tab) 2 gm PO QID [facility] Stop: 02/24/18 20:59 Last Admin: 01/01/18 08:40 Dose: 2 gm Sodium Phosphate (Fleet Enema) 135 ml RC DAILY PRN PRN Reason: Constipation Stop: 02/24/18 20:24 Tramadol HCl (Ultram) 50 mg PO Q6H PRN PRN Reason: Pain (Mild) Stop: 02/24/18 20:24 Last Admin: 12/31/17 11:14 Dose: 50 mg Zolpidem Tartrate (Ambien) 5 mg PO HS PRN PRN Reason: Insomnia Stop: 02/24/18 16:05 Last Admin: 12/31/17 22:19 Dose: 5 mg General: Alert, No acute distress, Other (Confused) HEENT: Atraumatic, EOMI Cardiovascular: Regular rate Lungs: Clear to auscultation Abdomen: Bowel sounds Extremities: Other (No edema) Neurological: Normal gait Skin: Other (Warm and dry) Psych/Mental Status: Other (Confused) Assessment/Plan - Assessment Assessment: Patient is awake , alert, calm, in no acute distress. Dx: Increased in agitation, HTN, CAD, CHF, Dyslipemia, Dementia, Obesity. - Plan Plan: Patient is follow by Psychiatry, will continue with SNF meds. Will continue to monitor. Nutritional Asmnt/Malnutr-PDOC - Dietary Evaluation Malnutrition Findings (Please click <Entered> for more info): Nutritional Asmnt/Malnutrition Start: 12/28/17 14: 54 Text: Status: Complete Freq: Protocol: Document 12/28/17 14:54 ALAINA (Rec: 12/28/17 15:11 ALAINA [email or web address]) Nutritional Asmnt/Malnutrition Patient General Information Nutritional Screening Moderate Risk Diagnosis psychosis Pertinent Medical Hx/Surgical Hx HTN, CAD, CHF, dyslipidemia, dementia, schizophrenia, bipolar Subjective Information Pt eating lunch in rec room at time of visit. Pt was alert and stated he has no diet preferences. Nursing noted PO intake: 100%. Current Diet Order/ Nutrition Support FABIOLA (4 gm) Pertinent Medications maalox, dulcolax, tums, colace , omega 3, lasix, MOM, theragran, klor-con, senna, zocor, Nacl tab Pertinent Labs 12/26: Na 135, Alb 3.6, triglycerides 204-206 Nutritional Hx/Data Height 1.73 m Height (Calculated Centimeters) 172.7 Current Weight (lbs) 99.79 kg Weight (Calculated Kilograms) 99.8 Weight (Calculated Grams) 13448.3 [place] Body Weight 154 lb Body Mass Index (BMI) 33.4 Weight Status Obese GI Symptoms GI Symptoms None Last BM 12/27 Difficult in: None Food Allergies No Skin Integrity/Comment: derek sykes 17 Current %PO Good (75-100%) Estimated Nutritional Goals BEE in Kcals: Adj wt of IBW Calories/Kcals/Kg 25-30 (based on adj wt 77.5 kg ) Kcals Calculated 5488-0939 Protein: Adj wt of IBW Protein g/k.0 (based on adj wt 77.5 kg) Protein Calculated 77.5 g Fluid: ml 6742-9104 (1 ml/kcal) Nutritional Problem No current Nutrition Prob Problem no nutrition dx at this time Malnutrition Alert Is there a minimum of two criteria No selected? Query Text:Check all the applicable criteria. A minimum of two criteria are recommended for diagnosis of either severe or non-severe malnutrition. Malnutrition Related to Morbid Obesity Malnutrition related to morbid obesity No Intervention/Recommendation Comments 1. Continue with FABIOLA (4 gm) diet as ordered d/t hx of HTN 2. Monitor PO intake, wt, labs and skin integrity 3. F/U as low risk in 7 days, 01/04 Expected Outcomes/Goals Expected Outcomes/Goals 1. PO intake to meet at least 75% of nutritional needs 2. Wt stability, skin to remain intact, and nutrition related labs to approach normal limits Reviewed by Denise Scherer RD
[2018-01-02] MEDS: Hydrocodone/APAP 5mg/325mg Tab PO PRN (00:39)
--- NOTE | 2018-01-02 02:41 | Progress Notes ---
DATE: SUBJECTIVE: The patient seen, chart reviewed, discussed with staff. The patient is still talking about electricity. Still believes that the power company is tainting the electricity with something that affects how human beings ____, very odd, asking for pain medication. Feeling that there is some electricity going down his arms. The patient ruminative, rambling, tangential, talking about topics that have nothing to do with my questions, sleeping well, eating well, mostly withdrawn, isolative, suspicious. ASSESSMENT: The patient with ongoing delusions, confusions. PLAN: We will continue to monitor, recent dose increase of Risperdal. No EPS. No akathisia. JOB# [id number]
[2018-01-02] MEDS: Potassium Chloride 20 mEq ER Tab PO SCH ×4 (08:41→21:16)
[2018-01-02] MEDS: Fish Oil 1,000 MG SGL PO SCH ×2 (08:41→16:19)
[2018-01-02] MEDS: Multivitamin Tab PO SCH (08:42)
--- NOTE | 2018-01-02 16:36 | Progress Notes ---
DATE: 01/02/2018 SUBJECTIVE: The patient seen, chart reviewed, discussed with staff. The patient still believes that there is electricity being tainted, still believes there is electricity running through the nicole, was calm, cooperative, but delusional, bizarre, mostly keeps to himself, seems to be tolerating at current dosing of Risperdal. No overt side effects. ASSESSMENT: The patient remains symptomatic, withdrawn, still delusional, psychotic, talking about the electricity being tainted. PLAN: We will continue to monitor given ongoing symptoms, he is not safe for discharge. JOB# [id number]
[2018-01-03] MEDS: Hydrocodone/APAP 5mg/325mg Tab PO PRN (02:46)
[2018-01-03] MEDS: Potassium Chloride 20 mEq ER Tab PO SCH ×4 (08:19→21:17)
[2018-01-03] MEDS: Multivitamin Tab PO SCH (08:22)
[2018-01-03] MEDS: Fish Oil 1,000 MG SGL PO SCH ×2 (08:24→17:21)
--- NOTE | 2018-01-04 04:38 | Progress Notes ---
DATE: 01/03/2018 The patient remains symptomatic, delusional, still believing that electricity gave him arm pain, "the electricity gave me feelings and the electricity." The patient delusional, talking nonsense, still remains impulsive, unpredictable, mostly keeps to himself. He is pretty bizarre with bizarre mediation. ASSESSMENT: The patient remains symptomatic, still delusional, talking about electricity, believing electricity has caused him to have physical problems. PLAN: We will continue to monitor, titrate and adjust medications. The patient is likely approaching his baseline, although he is delusional and he is calmer. JOB# [id number]
[2018-01-04 08:51] LABS: ANION GAP 12.3 (7.0-16.0); BUN - UREA NITROGEN 17 mg/dL (7-25); CARBON DIOXIDE 31.4 mEq/L (21.0-31.0); CHLORIDE 97 mEq/L (98-107); CREATININE - SERUM 0.9 mg/dL (0.7-1.3); GFR AFRICAN-AMERICAN > 60.0 ml/min (>90); GFR NON AFRICAN-AMERICAN > 60.0 ml/min; GLUCOSE 189 mg/dL (70-105); POTASSIUM SERUM 3.7 mEq/L (3.5-5.1); SODIUM SERUM 137 mEq/L (136-145)
[2018-01-04] MEDS: Fish Oil 1,000 MG SGL PO SCH ×2 (10:00→16:26)
[2018-01-04] MEDS: Multivitamin Tab PO SCH (10:00)
[2018-01-04] MEDS: Potassium Chloride 20 mEq ER Tab PO SCH ×4 (10:00→21:49)
--- NOTE | 2018-01-04 15:18 | Progress Notes ---
DATE: 01/04/2018 The patient remains delusional, talking about electricity, requesting a lot of p.r.n.'s for pain. He believes the pain is from the electricity. The patient is bizarre, nonsensical at times, likely approaching his baseline, mostly withdrawn, isolative, stated that he got electric shock treatments on his arm, no agitation, no escalation of behaviors, but his delusions do persist, they manifest into him believing he has pain and asking for pain medications. Sleeping well, eating well. ASSESSMENT: The patient calmer, more cooperative, still delusional, confused, but no longer is aggressive or violent. PLAN: We will continue to monitor for side effects. [facility]# [id number]
[2018-01-04] MEDS: Hydrocodone/APAP 5mg/325mg Tab PO PRN (21:49)
[2018-01-05] MEDS: Hydrocodone/APAP 5mg/325mg Tab PO PRN ×2 (06:58→13:01)
--- NOTE | 2018-01-05 09:13 | General Progress Note ---
Subjective - Review of Systems Service Date: 01/05/18 Subjective: Patient is confused, calm. Objective - Results Result Diagrams: 12/26/17 13:39 01/04/18 08:30 Recent Labs: Laboratory Last Values WBC 6.1 Th/cmm (4.8-10.8) 12/26/17 13:39 RBC 4.48 Mil/cmm (3.80-5.80) 12/26/17 13:39 Hgb 14.0 gm/dL (12-16) 12/26/17 13:39 Hct 41.7 % (41.0-60) 12/26/17 13:39 MCV 92.9 fl (80-99) 12/26/17 13:39 MCH 31.2 pg (27.0-31.0) H 12/26/17 13:39 MCHC Differential 33.6 pg (28.0-36.0) 12/26/17 13:39 RDW 12.2 % (11.5-20.0) 12/26/17 13:39 Plt Count 196 Th/cmm (150-400) 12/26/17 13:39 MPV 6.8 fl 12/26/17 13:39 Neutrophils % 69.3 % (40.0-80.0) 12/26/17 13:39 Lymphocytes % 15.5 % (20.0-50.0) L 12/26/17 13:39 Monocytes % 10.3 % (2.0-10.0) H 12/26/17 13:39 Eosinophils % 4.2 % (0.0-5.0) 12/26/17 13:39 Basophils % 0.7 % (0.0-2.0) 12/26/17 13:39 Sodium 137 mEq/L (136-145) 01/04/18 08:30 Potassium 3.7 mEq/L (3.5-5.1) 01/04/18 08:30 Chloride 97 mEq/L (98-107) L 01/04/18 08:30 Carbon Dioxide 31.4 mEq/L (21.0-31.0) H 01/04/18 08:30 Anion Gap 12.3 (7.0-16.0) 01/04/18 08:30 BUN 17 mg/dL (7-25) 01/04/18 08:30 Creatinine 0.9 mg/dL (0.7-1.3) 01/04/18 08:30 Est GFR ( Amer) > 60.0 ml/min (>90) 01/04/18 08:30 Est GFR (Non-Af Amer) > 60.0 ml/min 01/04/18 08:30 BUN/Creatinine Ratio 18.9 01/04/18 08:30 Glucose 189 mg/dL (70-105) H 01/04/18 08:30 Calcium 9.0 mg/dL (8.6-10.3) 01/04/18 08:30 Total Bilirubin 0.6 mg/dL (0.3-1.0) 12/26/17 13:39 AST 18 U/L (13-39) 12/26/17 13:39 ALT 23 U/L (7-52) 12/26/17 13:39 Alkaline Phosphatase 78 U/L (34-104) 12/26/17 13:39 Troponin I 0.01 ng/mL (0.01-0.05) 12/26/17 13:39 Total Protein 6.9 gm/dL (6.0-8.3) 12/26/17 13:39 Albumin 3.6 gm/dL (4.2-5.5) L 12/26/17 13:39 Globulin 3.3 gm/dL 12/26/17 13:39 Albumin/Globulin Ratio 1.1 (1.0-1.8) 12/26/17 13:39 Triglycerides 206 mg/dL (<150) H 12/26/17 13:39 Cholesterol 168 mg/dL (<200) 12/26/17 13:39 LDL Cholesterol Direct 81 mg/dL (75-193) 12/26/17 13:39 HDL Cholesterol 44 mg/dL (23-92) 12/26/17 13:39 TSH 1.90 uIU/ml (0.34-5.60) 12/26/17 13:39 Urine Source CLEAN C 12/26/17 14:09 Urine Color YELLOW 12/26/17 14:09 Urine Clarity CLEAR (CLEAR) 12/26/17 14:09 Urine pH 6.0 (4.6 - 8.0) 12/26/17 14:09 Ur Specific [place] 1.010 (1.005-1.030) 12/26/17 14:09 Urine Protein NEGATIVE mg/dL (NEGATIVE) 12/26/17 14:09 Urine Glucose (UA) NEGATIVE mg/dL (NEGATIVE) 12/26/17 14:09 Urine Ketones NEGATIVE mg/dL (NEGATIVE) 12/26/17 14:09 Urine Blood NEGATIVE (NEGATIVE) 12/26/17 14:09 Urine Nitrate NEGATIVE (NEGATIVE) 12/26/17 14:09 Urine Bilirubin NEGATIVE (NEGATIVE) 12/26/17 14:09 Urine Urobilinogen 0.2 E.U./dL (0.2 - 1.0) 12/26/17 14:09 Ur Leukocyte Esterase NEGATIVE (NEGATIVE) 12/26/17 14:09 Urine RBC NONE SEEN /hpf (0-5) 12/26/17 14:09 Urine WBC 0-2 /hpf (0-5) 12/26/17 14:09 Ur Epithelial Cells FEW /lpf (FEW) 12/26/17 14:09 Urine Bacteria FEW /hpf (NONE SEEN) 12/26/17 14:09 Salicylates < 25.0 mg/L (30.0-100.0) L 12/26/17 13:39 Urine Opiates Screen POSITIVE (NEGATIVE) H 12/26/17 13:39 Urine Methadone Screen NEGATIVE (NEGATIVE) 12/26/17 13:39 Acetaminophen < 10.0 ug/mL (10.0-30.0) L 12/26/17 13:39 Ur Barbiturates Screen NEGATIVE (NEGATIVE) 12/26/17 13:39 Ur Tricyclics Screen NEGATIVE (NEGATIVE) 12/26/17 13:39 Ur Phencyclidine Scrn NEGATIVE (NEGATIVE) 12/26/17 13:39 Amphetamines Screen NEGATIVE (NEGATIVE) 12/26/17 13:39 U Methamphetamines Scrn NEGATIVE (NEGATIVE) 12/26/17 13:39 U Benzodiazepines Scrn NEGATIVE (NEGATIVE) 12/26/17 13:39 U Cocaine Metab Screen NEGATIVE (NEGATIVE) 12/26/17 13:39 U Cannabinoids Screen NEGATIVE (NEGATIVE) 12/26/17 13:39 Ethyl Alcohol < 10 mg/dL (0-10) 12/26/17 13:39 RPR NONREACTIVE (NONREACTIVE) 12/26/17 13:39 - Physical Exam Vitals and I&O: Vital Signs Temp 97.4 F 01/05/18 06:46 Pulse 91 01/05/18 06:46 Resp 20 01/05/18 06:46 BP 118/68 01/05/18 06:46 Pulse Ox 98 01/05/18 06:46 Intake & Output 01/04/18 01/05/18 01/05/18 18:59 06:59 18:59 Intake Total 1100 120 Balance 1100 120 Intake: Oral 1100 120 Other: # Voids 3 3 # Bowel Movements 1 Active Medications: Current Medications Acetaminophen (Tylenol) 650 mg PO Q4HR PRN PRN Reason: Mild Pain / Temp above 100 Stop: 02/24/18 16:05 Last Admin: 12/26/17 17:51 Dose: 650 mg Acetaminophen (Tylenol Extra Strength) 1,000 mg PO Q4H PRN PRN Reason: Pain (Severe) Stop: 02/24/18 20:24 Last Admin: 01/01/18 03:33 Dose: 1,000 mg Acetaminophen/Hydrocodone Bitart ([place] 5mg/325mg) 1 tab PO QID PRN PRN Reason: Pain (Moderate) Stop: 02/24/18 20:24 Last Admin: 01/05/18 06:58 Dose: 1 tab Al Hydrox/Mg Hydrox/Simethicone (Maalox) 30 ml PO Q4HR PRN PRN Reason: GI DISTRESS Stop: 02/24/18 16:05 Last Admin: 01/01/18 00:10 Dose: 30 ml Aspirin (Ecotrin) 81 mg PO DAILY [facility] Stop: 02/25/18 08:59 Last Admin: 01/04/18 10:00 Dose: 81 mg Benztropine Mesylate (Cogentin) 0.5 mg PO HS [facility] Stop: 02/24/18 20:59 Last Admin: 01/04/18 21:49 Dose: 0.5 mg Bisacodyl (Dulcolax 10 Mg Supp) 10 mg RC DAILY PRN PRN Reason: Constipation Stop: 02/24/18 20:24 Calcium Carbonate (Tums) 500 mg PO TID [facility] Stop: 02/24/18 20:59 Last Admin: 01/04/18 21:49 Dose: 500 mg Divalproex Sodium (Depakote Dr) 125 mg PO DAILY [facility]; Protocol Stop: 02/25/18 08:59 Last Admin: 01/04/18 10:00 Dose: 125 mg Divalproex Sodium (Depakote Dr) 250 mg PO HS ZAIRE; Protocol Stop: 02/24/18 20:59 Last Admin: 01/04/18 23:16 Dose: 250 mg Docusate Sodium (Colace) 250 mg PO BID ZAIRE Stop: 02/25/18 08:59 Last Admin: 01/04/18 16:26 Dose: 250 mg Donepezil HCl (Aricept) 10 mg PO DAILY ZAIRE Stop: 02/25/18 08:59 Last Admin: 01/04/18 10:00 Dose: 10 mg Fish Oil ([place] 3) 1,000 mg PO BID ZAIRE Stop: 02/25/18 08:59 Last Admin: 01/04/18 16:26 Dose: 1,000 mg Furosemide (Lasix) 40 mg PO BID ZAIRE Stop: 02/25/18 08:59 Last Admin: 01/04/18 16:30 Dose: 40 mg Lisinopril (Zestril) 10 mg PO DAILY ZAIRE Stop: 03/04/18 09:44 Last Admin: 01/04/18 10:00 Dose: 10 mg Lorazepam (Ativan) 0.5 mg PO Q4HR PRN; Protocol PRN Reason: Anxiety Stop: 01/26/18 06:28 Last Admin: 01/04/18 14:04 Dose: 0.5 mg Magnesium Hydroxide (Milk Of Magnesia) 30 ml PO HS PRN PRN Reason: Constipation Metoprolol Tartrate (Lopressor) 200 mg PO BID ZAIRE Stop: 02/25/18 08:59 Last Admin: 01/04/18 16:28 Dose: Not Given Multivitamins/Vitamin C (Theragran) 1 tab PO DAILY ZAIRE Stop: 02/25/18 08:59 Last Admin: 01/04/18 10:00 Dose: 1 tab Potassium Chloride (Klor-Con) 20 meq PO QID ZAIRE Stop: 02/24/18 20:59 Last Admin: 01/04/18 21:49 Dose: 20 meq Pyridoxine HCl (Vitamin B6) 50 mg PO DAILY ZAIRE Stop: 02/25/18 08:59 Last Admin: 01/04/18 10:00 Dose: 50 mg Risperidone (Risperdal) 2 mg PO HS ZAIRE; Protocol Stop: 03/03/18 20:59 Last Admin: 01/04/18 21:48 Dose: 2 mg Senna (Senna) 17.2 mg PO BID ZAIRE Stop: 02/25/18 08:59 Last Admin: 01/04/18 16:27 Dose: 17.2 mg Simvastatin (Zocor) 20 mg PO HS ZAIRE; Protocol Stop: 02/25/18 20:59 Last Admin: 01/04/18 21:49 Dose: 20 mg Sodium Chloride (Nacl Tab) 2 gm PO QID ZAIRE Stop: 02/24/18 20:59 Last Admin: 01/04/18 21:48 Dose: 2 gm Sodium Phosphate (Fleet Enema) 135 ml RC DAILY PRN PRN Reason: Constipation Stop: 02/24/18 20:24 Tramadol HCl (Ultram) 50 mg PO Q6H PRN PRN Reason: Pain (Mild) Stop: 02/24/18 20:24 Last Admin: 01/04/18 12:01 Dose: 50 mg Zolpidem Tartrate (Ambien) 5 mg PO HS PRN PRN Reason: Insomnia Stop: 02/24/18 16:05 Last Admin: 01/04/18 21:49 Dose: 5 mg General: Alert, No acute distress, Other (Confused) HEENT: Atraumatic, EOMI Cardiovascular: Regular rate Lungs: Clear to auscultation Abdomen: Bowel sounds Extremities: Other (No edema) Neurological: Normal gait Skin: Other (Warm and dry) Psych/Mental Status: Other (Confused) Assessment/Plan - Assessment Assessment: Patient is awake , alert, calm, in no acute distress. Dx: Increased in agitation, HTN, CAD, CHF, Dyslipemia, Dementia, Obesity. - Plan Plan: Patient is follow by Psychiatry, will continue with SNF meds. Will continue to monitor. Nutritional Asmnt/Malnutr-PDOC - Dietary Evaluation Malnutrition Findings (Please click <Entered> for more info): Nutritional Asmnt/Malnutrition Start: 12/28/17 14: 54 Text: Status: Complete Freq: Protocol: Document 12/28/17 14:54 ALAINA (Rec: 12/28/17 15:11 ALAINA [email or web address]) Nutritional Asmnt/Malnutrition Patient General Information Nutritional Screening Moderate Risk Diagnosis psychosis Pertinent Medical Hx/Surgical Hx HTN, CAD, CHF, dyslipidemia, dementia, schizophrenia, bipolar Subjective Information Pt eating lunch in rec room at time of visit. Pt was alert and stated he has no diet preferences. Nursing noted PO intake: 100%. Current Diet Order/ Nutrition Support FABIOLA (4 gm) Pertinent Medications maalox, dulcolax, tums, colace , omega 3, lasix, MOM, theragran, klor-con, senna, zocor, Nacl tab Pertinent Labs 12/26: Na 135, Alb 3.6, triglycerides 204-206 Nutritional Hx/Data Height 1.73 m Height (Calculated Centimeters) 172.7 Current Weight (lbs) 99.79 kg Weight (Calculated Kilograms) 99.8 Weight (Calculated Grams) 10535.3 [place] Body Weight 154 lb Body Mass Index (BMI) 33.4 Weight Status Obese GI Symptoms GI Symptoms None Last BM 12/27 Difficult in: None Food Allergies No Skin Integrity/Comment: derek sykes 17 Current %PO Good (75-100%) Estimated Nutritional Goals BEE in Kcals: Adj wt of IBW Calories/Kcals/Kg 25-30 (based on adj wt 77.5 kg ) Kcals Calculated 2083-2791 Protein: Adj wt of IBW Protein g/k.0 (based on adj wt 77.5 kg) Protein Calculated 77.5 g Fluid: ml 8976-7178 (1 ml/kcal) Nutritional Problem No current Nutrition Prob Problem no nutrition dx at this time Malnutrition Alert Is there a minimum of two criteria No selected? Query Text:Check all the applicable criteria. A minimum of two criteria are recommended for diagnosis of either severe or non-severe malnutrition. Malnutrition Related to Morbid Obesity Malnutrition related to morbid obesity No Intervention/Recommendation Comments 1. Continue with FABIOLA (4 gm) diet as ordered d/t hx of HTN 2. Monitor PO intake, wt, labs and skin integrity 3. F/U as low risk in 7 days, 01/04 Expected Outcomes/Goals Expected Outcomes/Goals 1. PO intake to meet at least 75% of nutritional needs 2. Wt stability, skin to remain intact, and nutrition related labs to approach normal limits Reviewed by Denise Scherer RD
[2018-01-05] MEDS: Fish Oil 1,000 MG SGL PO SCH ×2 (09:40→16:47)
[2018-01-05] MEDS: Potassium Chloride 20 mEq ER Tab PO SCH ×3 (09:41→16:47)
[2018-01-05] MEDS: Multivitamin Tab PO SCH (13:08)
--- NOTE | 2018-01-05 19:50 | Discharge Summary ---
DATE OF DISCHARGE: 01/05/2018 JUSTIFICATION FOR HOSPITALIZATION: Paranoid, aggressive. HISTORY OF PRESENT ILLNESS: A 59-year-old male, talking about electrocution, believing he was electrocuted, electricity is tainted that was causing his arm pain, disoriented and disorganized. Denying overt sadness or depression. PAST PSYCHIATRIC HISTORY: Psych depression in the past, likely schizophrenia. MEDICATIONS: Noted. SOCIAL HISTORY: The patient was born in [place], for 5 years. PROVISIONAL DIAGNOSIS: Likely schizophrenia, psychosis, unspecified concerns for dementia and also anxiety, unspecified. Under medical, please see full H and P. HOSPITAL COURSE: After initial assessment, the patient was started on medications Risperdal. Risperdal was titrated and adjusted. Over the course of the hospitalization, her mood improved, affect improved, calm, cooperative. He remained somewhat isolative, delusional about electricity. As the hospitalization progressed, these delusions dissipated. He still was questioning whether the electricity was tainted. However, he was significantly calmer, more cooperative, no agitation. By 01/05/2018, he was no longer noted to be dangerous or aggressive and he was discharged, tolerant of heightened dose of Risperdal. CONDITION UPON DISCHARGE: Improved, allowing ADLs. Fair eye contact. Mood "fine." Affect flat. Thought processes were mildly tangential. No SI, no HI, no intent, no plan. On questioning whether the electricity may be tainted, but questioning, these thoughts. No auditory or visual the hallucinations insight and judgment better. PROVISIONAL DIAGNOSIS: Schizophrenia. Under medical, please see full H and P. PROGNOSIS: The patient follows up with outpatient mental health services and remains compliant with treatment. Prognosis will improve, otherwise guarded. JOB# [id number]
== END 2018-01-05 17:30 | DRG 885 ==
LOC: ER 12:25 → GERO 15:04
PROVIDERS: ADMIT Psychiatry & Neurology Psychiatry; ATTEND Psychiatry & Neurology Psychiatry
DX: F20.9 Schizophrenia, unspecified (principal); I11.0 Hypertensive heart disease with heart failure; F29 Unspecified psychosis not due to a substance or known physiological condition; F41.9 Anxiety disorder, unspecified; I50.9 Heart failure, unspecified; I25.10 Atherosclerotic heart disease of native coronary artery without angina pectoris; E78.5 Hyperlipidemia, unspecified; E66.9 Obesity, unspecified; Z82.49 Family history of ischemic heart disease and other diseases of the circulatory system; G30.9 Alzheimer's disease, unspecified; F02.80 Dementia in other diseases classified elsewhere, unspecified severity, without behavioral disturbance, psychotic disturbance, mood disturbance, and anxiety; Z79.82 Long term (current) use of aspirin; Z68.33 Body mass index [BMI] 33.0-33.9, adult
CPT/HCPCS: 36415-UA; 80048-TC; 80053-TC; 80061-TC; 80307; 80320-TC; 80329-TC; 81001-TC; 83036-90; 84443-TC; 84484-TC; 85025-TC; 86592-TC; 93005; G0410; Z7610